=== PATIENT | male | born 1940 | race Caucasian/White ===

== ENCOUNTER → 2023-04-10 11:18 | Outpatient (REF) | payer MEDICARE, BC, SELFPAY | LOC: RAD 11:18 | PROVIDERS: ATTENDING PHYSICIAN Family Medicine | DX: M79.652 Pain in left thigh (principal) | CPT/HCPCS: 73552 ==

== ENCOUNTER → 2023-04-21 06:47 | Outpatient (REF) | payer MEDICARE, BC, SELFPAY | LOC: RAD 06:47 | PROVIDERS: ATTENDING PHYSICIAN Orthopaedic Surgery; FAMILY PHYSICIAN Family Medicine | DX: S72.22XD Displaced subtrochanteric fracture of left femur, subsequent encounter for closed fracture with routine healing (principal) | CPT/HCPCS: 73700 ==

== ENCOUNTER → 2023-04-30 08:56 | Outpatient (REF) | payer MEDICARE, BC, SELFPAY ==
[2023-04-30 09:43] LABS: % Basophils 1.2 % (0-2); % Eosinophils 2.5 % (0-6); % Immature Granulocytes 0.8 % (0-0.5); % Lymphocytes 9.3 % (20.5-51.1); % Monocytes 9.8 % (1.7-9.3); % Neutrophils 76.4 % (42.2-75.2); Absolute Basophils 0.1 10^3/uL (0-0.2); Absolute Eosinophils 0.1 10^3/uL (0-0.7); Absolute Lymphocytes 0.5 10^3/uL (1.2-3.4); Absolute Monocytes 0.5 10^3/uL (0.1-0.6); Absolute Neutrophils 3.7 10^3/uL (1.4-6.5); Hematocrit 35.5 % (39.0-52.0); Hemoglobin 11.7 g/dL (13.0-18.0); Mean Corpuscular Hgb 33.9 pg (27.0-31.0); Mean Corpuscular Volume 102.9 fL (80.0-94.0); Mean Platelet Volume 9.2 fL (7.4-10.4); Nucleated Red Blood Cells % 0 % (-); Platelet Count 162 10^3/uL (130-400); Red Blood Cell Count 3.45 10^6/uL (4.70-6.10); Red Cell Dist. Width 14.4 % (11.5-14.5); White Blood Cell Count 4.8 10^3/uL (4.8-10.8)
[2023-04-30 10:16] LABS: Erythrocyte Sed Rate 21 mm/hour (0-20)
== END ==
LOC: REG 08:56
PROVIDERS: ATTENDING PHYSICIAN Physician Assistant; FAMILY PHYSICIAN Family Medicine
DX: S72.22XK Displaced subtrochanteric fracture of left femur, subsequent encounter for closed fracture with nonunion (principal)
CPT/HCPCS: 36415; 85025; 85652; 86140

== ENCOUNTER → 2023-05-22 07:42 | Outpatient (REF) | payer MEDICARE, BC, SELFPAY ==
[2023-05-22 09:09] LABS: ALT (SGPT) 15 U/L (0-50); AST (SGOT) 27 U/L (17-59); Albumin 4.3 g/dl (3.5-5.0); Alkaline Phosphatase 110 U/L (38-126); Blood Urea Nitrogen 20 mg/dl (9-20); Calcium 9.2 mg/dl (8.4-10.2); Carbon Dioxide 26 mmol/L (22-30); Chloride 105 mmol/L (98-107); Glucose 97 mg/dl (70-99); Magnesium 2.1 mg/dl (1.6-2.3); Potassium 4.6 mmol/L (3.5-5.1); Sodium 136 mmol/L (135-145); Total Bilirubin 0.7 mg/dl (0.2-1.3); Total Protein 7.2 g/dl (6.3-8.2); eGFR > 60.00
[2023-05-22 09:23] LABS: Vitamin D, 25-OH*** 37.7 ng/mL (30-80)
[2023-05-22 09:37] LABS: TSH 3.97 uIU/ml (0.47-4.68)
[2023-05-24 09:51] LABS: Intact PTH 42.7 pg/ml (13.6-85.8)
== END ==
LOC: RAD 07:42
PROVIDERS: ATTENDING PHYSICIAN Orthopaedic Surgery; FAMILY PHYSICIAN Family Medicine
DX: M81.0 Age-related osteoporosis without current pathological fracture (principal); E78.5 Hyperlipidemia, unspecified
CPT/HCPCS: 36415; 77080; 80053; 82306; 82565; 83735; 83970; 84443

== ENCOUNTER → 2023-05-29 07:10 | Outpatient (REF) | payer MEDICARE, BC, SELFPAY ==
[2023-05-29 10:39] LABS: PSA, Total - Diagnostic < 0.06 ng/ml (0.0-4.0)
[2023-05-29 10:42] LABS: Testosterone, Total 8.8 ng/dl (72-623)
== END ==
LOC: REG 07:10
PROVIDERS: ATTENDING PHYSICIAN Radiology Radiation Oncology; FAMILY PHYSICIAN Family Medicine
DX: C61 Malignant neoplasm of prostate (principal)
CPT/HCPCS: 36415; 84153; 84403

== ENCOUNTER 2023-06-02 10:29 | Emergency (ER) | payer SELFPAY ==
[2023-06-02 10:32] VITALS: BP 167/76
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
[2023-06-02] MEDS: VALIUM INJECTION 2 MG IM (11:32)
[2023-06-02] MEDS: LIDOCAINE 4% PATCH 1 PATCH TOPICAL (12:23)
== END 2023-06-02 14:30 | disposition home or self-care (01) ==
LOC: EMR 10:29
PROVIDERS: EMERGENCY PHYSICIAN Emergency Medicine; FAMILY PHYSICIAN Family Medicine
DX: S32.018A Other fracture of first lumbar vertebra, initial encounter for closed fracture (principal); V40.6XXA Car passenger injured in collision with pedestrian or animal in traffic accident, initial encounter; M54.50 Low back pain, unspecified; Z79.01 Long term (current) use of anticoagulants; I10 Essential (primary) hypertension
CPT/HCPCS: 99284; 96372; 70450; 72110

== ENCOUNTER → 2023-06-06 07:00 | Outpatient (REF) | payer MEDICARE, BC, SELFPAY | LOC: RAD 07:00 | PROVIDERS: ATTENDING PHYSICIAN Physician Assistant; FAMILY PHYSICIAN Family Medicine | DX: Z95.0 Presence of cardiac pacemaker (principal); S32.010A Wedge compression fracture of first lumbar vertebra, initial encounter for closed fracture; V49.50XA Passenger injured in collision with unspecified motor vehicles in traffic accident, initial encounter; M54.50 Low back pain, unspecified | CPT/HCPCS: 72131 ==

== ENCOUNTER → 2023-06-24 07:09 | Day surgery (SDC) | payer MEDICARE, BC, SELFPAY ==
[2023-06-24 07:50] VITALS: BP 142/62; BP_SYST 65
[2023-06-24 07:52] LABS: Hematocrit 37.5 % (39.0-52.0); Hemoglobin 12.3 g/dL (13.0-18.0); Mean Corp Hgb Conc. 32.8 g/dL (33.0-37.0); Mean Corpuscular Hgb 33.8 pg (27.0-31.0); Mean Platelet Volume 8.6 fL (7.4-10.4); Platelet Count 209 10^3/uL (130-400); Red Blood Cell Count 3.64 10^6/uL (4.70-6.10); Red Cell Dist. Width 13.7 % (11.5-14.5); White Blood Cell Count 9.4 10^3/uL (4.8-10.8)
[2023-06-24 07:57] LABS: INR 1.28; PT 15.8 Sec (11.4-14.6)
[2023-06-24] MEDS: ANCEF 10 IV (09:04)
[2023-06-24 10:45] VITALS: BP 112/48
--- NOTE | 2023-06-24 10:47 | PTCARENOTE ---
Returned to [facility] at 1030. Pt. to remain flat until 11:30. Pt. denies any pain at this time. See charted assessment.
[2023-06-24 11:00] VITALS: BP 110/50
[2023-06-24 11:15] VITALS: BP 113/56
[2023-06-24 11:31] VITALS: BP 119/56
[2023-06-24 11:45] VITALS: BP 118/55
== END ==
LOC: SDS 07:09
PROVIDERS: ATTENDING PHYSICIAN Radiology Vascular & Interventional Radiology
DX: M80.08XA Age-related osteoporosis with current pathological fracture, vertebra(e), initial encounter for fracture (principal)
CPT/HCPCS: 22511; 22514; 36415; 85027; 85610

== ENCOUNTER → 2023-06-26 10:20 | Outpatient (REF) | payer MEDICARE, BC, SELFPAY ==
[2023-06-26 12:26] LABS: ALT (SGPT) < 10 U/L (0-50); AST (SGOT) 23 U/L (17-59); Albumin 4.1 g/dl (3.5-5.0); Alkaline Phosphatase 135 U/L (38-126); Blood Urea Nitrogen 17 mg/dl (9-20); Calcium 9.5 mg/dl (8.4-10.2); Carbon Dioxide 29 mmol/L (22-30); Chloride 101 mmol/L (98-107); Glucose 96 mg/dl (70-99); Magnesium 2.1 mg/dl (1.6-2.3); Potassium 4.8 mmol/L (3.5-5.1); Sodium 134 mmol/L (135-145); Total Bilirubin 0.7 mg/dl (0.2-1.3); Total Protein 7.1 g/dl (6.3-8.2); eGFR > 60.00
[2023-06-26 12:35] LABS: Vitamin D, 25-OH*** 39.6 ng/mL (30-80)
[2023-06-26 12:49] LABS: TSH 2.19 uIU/ml (0.47-4.68)
== END ==
LOC: REG 10:20
PROVIDERS: ATTENDING PHYSICIAN Orthopaedic Surgery; FAMILY PHYSICIAN Family Medicine
DX: M81.0 Age-related osteoporosis without current pathological fracture (principal); Z79.899 Other long term (current) drug therapy
CPT/HCPCS: 36415; 80053; 82306; 82565; 83735; 84443

== ENCOUNTER → 2023-08-04 06:51 | Outpatient (REF) | payer MEDICARE, BC, SELFPAY ==
[2023-08-04 07:34] LABS: % Basophils 1.2 % (0-2); % Eosinophils 2.7 % (0-6); % Immature Granulocytes 0.8 % (0-0.5); % Lymphocytes 8.8 % (20.5-51.1); % Monocytes 14.6 % (1.7-9.3); % Neutrophils 71.9 % (42.2-75.2); Absolute Basophils 0.1 10^3/uL (0-0.2); Absolute Eosinophils 0.2 10^3/uL (0-0.7); Absolute Immature Granulocytes 0.1 10^3/uL (0-0.05); Absolute Lymphocytes 0.6 10^3/uL (1.2-3.4); Absolute Monocytes 1.1 10^3/uL (0.1-0.6); Absolute Neutrophils 5.3 10^3/uL (1.4-6.5); Hematocrit 34.6 % (39.0-52.0); Hemoglobin 11.4 g/dL (13.0-18.0); Mean Corp Hgb Conc. 32.9 g/dL (33.0-37.0); Mean Corpuscular Hgb 32.8 pg (27.0-31.0); Mean Corpuscular Volume 99.4 fL (80.0-94.0); Mean Platelet Volume 8.7 fL (7.4-10.4); Nucleated Red Blood Cells % 0 % (-); Platelet Count 225 10^3/uL (130-400); Red Blood Cell Count 3.48 10^6/uL (4.70-6.10); Reticulocyte Count 2.9 % (0.4-2.8); White Blood Cell Count 7.3 10^3/uL (4.8-10.8)
== END ==
LOC: REG 06:51
PROVIDERS: ATTENDING PHYSICIAN Family Medicine
DX: D64.9 Anemia, unspecified (principal)
CPT/HCPCS: 36415; 85025; 85045

== ENCOUNTER → 2023-08-18 06:53 | Outpatient (REF) | payer MEDICARE, BC, SELFPAY | LOC: RAD 06:53 | PROVIDERS: ATTENDING PHYSICIAN Orthopaedic Surgery; FAMILY PHYSICIAN Family Medicine | DX: S72.22XK Displaced subtrochanteric fracture of left femur, subsequent encounter for closed fracture with nonunion (principal) | CPT/HCPCS: 73700 ==

== ENCOUNTER → 2023-09-02 07:21 | Outpatient (REF) | payer MEDICARE, BC, SELFPAY ==
[2023-09-02 08:51] LABS: PSA, Total - Diagnostic < 0.06 ng/ml (0.0-4.0)
[2023-09-02 08:53] LABS: Testosterone, Total 15.7 ng/dl (72-623)
== END ==
LOC: REG 07:21
PROVIDERS: ATTENDING PHYSICIAN Radiology Radiation Oncology; FAMILY PHYSICIAN Family Medicine
DX: C61 Malignant neoplasm of prostate (principal)
CPT/HCPCS: 36415; 84153; 84403

== ENCOUNTER → 2023-11-19 06:47 | Outpatient (REF) | payer MEDICARE, BC, SELFPAY ==
[2023-11-19 07:29] LABS: % Basophils 1.1 % (0-2); % Eosinophils 3.5 % (0-6); % Immature Granulocytes 0.6 % (0-0.5); % Monocytes 15.5 % (1.7-9.3); % Neutrophils 67.3 % (42.2-75.2); Absolute Basophils 0.1 10^3/uL (0-0.2); Absolute Eosinophils 0.2 10^3/uL (0-0.7); Absolute Lymphocytes 0.8 10^3/uL (1.2-3.4); Absolute Neutrophils 4.4 10^3/uL (1.4-6.5); Hematocrit 30.2 % (39.0-52.0); Hemoglobin 9.8 g/dL (13.0-18.0); Mean Corp Hgb Conc. 32.5 g/dL (33.0-37.0); Mean Corpuscular Hgb 32.8 pg (27.0-31.0); Mean Platelet Volume 9.1 fL (7.4-10.4); Nucleated Red Blood Cells % 0 % (-); Platelet Count 223 10^3/uL (130-400); Red Blood Cell Count 2.99 10^6/uL (4.70-6.10); Red Cell Dist. Width 15.8 % (11.5-14.5); White Blood Cell Count 6.5 10^3/uL (4.8-10.8)
[2023-11-19 08:11] LABS: ALT (SGPT) 11 U/L (0-50); AST (SGOT) 23 U/L (17-59); Albumin 4.1 g/dl (3.5-5.0); Alkaline Phosphatase 86 U/L (38-126); Blood Urea Nitrogen 18 mg/dl (9-20); Calcium 9.4 mg/dl (8.4-10.2); Carbon Dioxide 24 mmol/L (22-30); Chloride 104 mmol/L (98-107); Glucose 103 mg/dl (70-99); HDL Cholesterol 57 mg/dl; LDL Cholesterol, Calculated 46 mg/dl; Potassium 4.4 mmol/L (3.5-5.1); Sodium 142 mmol/L (135-145); Total Bilirubin 0.5 mg/dl (0.2-1.3); Total Cholesterol 128 mg/dl (50-199); Total Protein 6.6 g/dl (6.3-8.2); Triglyceride 126 mg/dl (10-149); Very Low Density Lipoprotein 25 mg/dl (0-30); eGFR > 60.00
== END ==
LOC: REG 06:47
PROVIDERS: ATTENDING PHYSICIAN Internal Medicine; FAMILY PHYSICIAN Family Medicine
DX: I50.32 Chronic diastolic (congestive) heart failure (principal); I25.10 Atherosclerotic heart disease of native coronary artery without angina pectoris; E78.00 Pure hypercholesterolemia, unspecified
CPT/HCPCS: 36415; 80053; 80061; 85025

== ENCOUNTER → 2023-12-10 06:53 | Outpatient (REF) | payer MEDICARE, BC, SELFPAY ==
[2023-12-10 07:39] LABS: % Eosinophils 3.2 % (0-6); % Immature Granulocytes 0.5 % (0-0.5); % Lymphocytes 12.6 % (20.5-51.1); % Monocytes 16.8 % (1.7-9.3); % Neutrophils 65.9 % (42.2-75.2); Absolute Basophils 0.1 10^3/uL (0-0.2); Absolute Eosinophils 0.2 10^3/uL (0-0.7); Absolute Lymphocytes 0.8 10^3/uL (1.2-3.4); Absolute Neutrophils 3.9 10^3/uL (1.4-6.5); Hematocrit 26.9 % (39.0-52.0); Hemoglobin 8.5 g/dL (13.0-18.0); Mean Corp Hgb Conc. 31.6 g/dL (33.0-37.0); Mean Corpuscular Hgb 31.8 pg (27.0-31.0); Mean Corpuscular Volume 100.7 fL (80.0-94.0); Mean Platelet Volume 8.6 fL (7.4-10.4); Nucleated Red Blood Cells % 0 % (-); Platelet Count 214 10^3/uL (130-400); Red Blood Cell Count 2.67 10^6/uL (4.70-6.10); Red Cell Dist. Width 14.9 % (11.5-14.5)
== END ==
LOC: REG 06:53
PROVIDERS: ATTENDING PHYSICIAN Internal Medicine; FAMILY PHYSICIAN Family Medicine
DX: D64.9 Anemia, unspecified (principal)
CPT/HCPCS: 36415; 85025

== ENCOUNTER 2023-12-12 13:19 | Emergency (ER) | payer MEDICARE, BC, SELFPAY ==
[2023-12-12 13:36] VITALS: BP 148/98
--- NOTE | 2023-12-12 13:36 | ED.GENMED ---
ED Provider Triage
<Lang Mcdaniels PA-C - Last Filed: 12/12/23 13:38>
-
Patient seen by provider in Triage?: Seen in Triage
Attestation: A medical screening examination has been initiated by a qualified medical provider. Based on the assessment performed at this time, it has been determined that an emergent medical condition may exist and the patient has been informed
that further medical evaluation and possible additional diagnostic testing may be needed.
HPI: 83-year-old male presenting to the emergency department for evaluation of GI bleeding and reportedly low hemoglobin. Patient is on Eliquis due to multiple cardiac issues. States that the GI bleeding has been somewhat chronic and is likely
related to prostate cancer and status post radiation. Notes that over the last few days he has become increasingly more short of breath, exertional dyspnea and much more fatigue. Patient was sent to the ER for suspected anemia and requiring blood
transfusion. He does report needing a blood transfusion about 10 years ago.
GENERAL: Alert , in no apparent distress
EYE: No visual abnormalities.
NECK: Trachea midline
ENT: No visible abnormalities.
LUNGS: No acute respiratory distress
NEUROLOGICAL: Alert and oriented
SKIN: Skin intact. No visible changes.
MUSCULOSKELETAL: Moving extremities normally
PSYCH: Normal and appropriate interaction.
This is a medical evaluation conducted in person to initiate diagnostic evaluation and provide initial therapeutics. Please see further documentation by the treating clinician.
History of Present Illness
<Lang Mcdaniels PA-C - Last Filed: 12/12/23 13:38>
General
Chief Complaint: Abnormal Lab Value
Time Seen by Provider: 12/12/23 18:13
<Jim Hines MD - Last Filed: 12/12/23 22:08>
History of Present Illness
History of Present Illness:
Patient is a 83-year-old man with history of A-fib on Eliquis, prostate cancer in remission, GI bleed with ongoing workup presenting to the emergency department with low hemoglobin. Patient states that in August he noticed bright red blood per his
rectum that was painless. He did see GI and had a colonoscopy. It did show active bleeding. At that time GI opted to treat it with an enema and he was post to follow-up with them today. He does state that initially he had significant bright red
blood per his rectum however now it only occurs every few days. He has not had any bleeding today. Unfortunately his appointment was canceled. They called him to reschedule it for early next week. Patient states that he is on Eliquis for his
cardiac issues. He is noted for the past 2 days he has been tired weak and some have been having some dyspnea on exertion. 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 He reviewed his blood work and noticed that his hemoglobin was
dropping and was 8.5 last week. He recommended that he come to the emergency department for evaluation and likely blood transfusion with a goal hemoglobin greater than 8. Patient denies any lightheadedness or dizziness or syncopal events. No
chest pain. No nausea or vomiting.
Past History
<Lang Mcdaniels PA-C - Last Filed: 12/12/23 13:38>
Past History
ED Past Medical History: Arrthythmia (Atrial fibrillation), Asthma and Valvular disease (aortic valve and mitral valve replacement.)
ED Past Surgical History: Cardiac (AVR, MR, pacemaker) and Orthopedic
Social History
Tobacco: Non-smoker
Phy Exam
<Jim Hines MD - Last Filed: 12/12/23 22:08>
Physical Exam
Physical Exam:
GENERAL: in no acute distress
HEENT: normocephalic, extraocular movements intact, pale conjunctiva, moist oral mucosa
NECK: normal inspection
RESPIRATORY: no respiratory distress, clear to auscultation bilaterally
CARDIOVASCULAR: regular rate and rhythm
ABDOMEN/: soft, non-distended, non-tender to palpation, no rebound or guarding
EXTREMITIES: non-tender, no edema/swelling
NEUROLOGIC: awake and alert, moves all extremities
SKIN: warm
Course
<Lang Mcdaniels PA-C - Last Filed: 12/12/23 13:38>
Orders/Labs/Results
Orders:
Orders
12/12/23 13:44
Type+Screen Urgent
Complete Blood Count/With Diff Urgent
Comprehensive Metabolic Panel Urgent
12/12/23 18:16
PTT Urgent
Prothrombin Time Urgent
12/12/23 18:42
* Blood Bank Products Urgent
Blood Bank Products: *Packed RBC Leuko(PRBC's)
Quantity: 1
Transfuse Today: Yes
Reason: Anemia
12/12/23 18:48
Electrocardiogram (*1) Urgent
Reason for Study: Shortness of Breath
EKG- Treatment ONCE
CR Chest - 2 Views Urgent
Comment:
Reason For Exam: ha
12/12/23 19:24
Add On- LAB Stat
Tests Added?: troponin
12/12/23 20:25
Troponin I Urgent
Comment: COLLECT. NO GREEN TOP IN LAB
12/12/23 21:25
EKG- Treatment ONCE
12/12/23 23:00
ECG [Electrocardiogram (*1)] Urgent
Reason for Study: Abnormal EKG
Troponin I Routine
Abnormal Lab Results
12/12/23 12/12/23 12/12/23
13:44 18:16 20:25
RBC 2.55 L 10^6/uL
(4.70-6.10)
Hgb 8.0 L g/dL
(13.0-18.0)
Hct 24.6 L %
(39.0-52.0)
MCV 96.5 H fL
(80.0-94.0)
MCH 31.4 H pg
(27.0-31.0)
MCHC 32.5 L g/dL
(33.0-37.0)
RDW 14.8 H %
(11.5-14.5)
Absolute Lymphs (auto) 0.5 L 10^3/uL
(1.2-3.4)
Absolute Monos (auto) 0.9 H 10^3/uL
(0.1-0.6)
Neutrophils % 79.3 H %
(42.2-75.2)
Lymphocytes % 6.1 L %
(20.5-51.1)
Monocytes % 11.3 H %
(1.7-9.3)
PT 19.1 H Sec
(11.4-14.6)
APTT 38.0 H Sec
(23.4-35.0)
BUN 25 H mg/dl
(9-20)
Creatinine 1.4 H mg/dL
(0.7-1.3)
Glucose 114 H mg/dl
(70-99)
Troponin I 0.035 H* ng/ml
Crossmatch IS Only See Detail
12/12/23 13:44
12/12/23 13:44
Vital Signs
Initial and Last Documented VS:
Initial Vital Signs
Temp Pulse Resp BP Pulse Ox
98.5 F 87 18 148/98 98
12/12/23 13:36 12/12/23 13:36 12/12/23 13:36 12/12/23 13:36 12/12/23 13:36
Last Documented Vital Signs
Temp Pulse Resp BP Pulse Ox
98.4 F 84 20 110/58 96
12/12/23 19:53 12/12/23 21:08 12/12/23 21:08 12/12/23 21:08 12/12/23 21:08
<Jim Hines MD - Last Filed: 12/12/23 22:08>
Orders/Labs/Results
Orders:
Orders
12/12/23 13:44
Type+Screen Urgent
Complete Blood Count/With Diff Urgent
Comprehensive Metabolic Panel Urgent
12/12/23 18:16
PTT Urgent
Prothrombin Time Urgent
12/12/23 18:42
* Blood Bank Products Urgent
Blood Bank Products: *Packed RBC Leuko(PRBC's)
Quantity: 1
Transfuse Today: Yes
Reason: Anemia
12/12/23 18:48
Electrocardiogram (*1) Urgent
Reason for Study: Shortness of Breath
EKG- Treatment ONCE
CR Chest - 2 Views Urgent
Comment:
Reason For Exam: ha
12/12/23 19:24
Add On- LAB Stat
Tests Added?: troponin
12/12/23 20:25
Troponin I Urgent
Comment: COLLECT. NO GREEN TOP IN LAB
12/12/23 21:25
EKG- Treatment ONCE
12/12/23 23:00
ECG [Electrocardiogram (*1)] Urgent
Reason for Study: Abnormal EKG
Troponin I Routine
Abnormal Lab Results
12/12/23 12/12/23 12/12/23
13:44 18:16 20:25
RBC 2.55 L 10^6/uL
(4.70-6.10)
Hgb 8.0 L g/dL
(13.0-18.0)
Hct 24.6 L %
(39.0-52.0)
MCV 96.5 H fL
(80.0-94.0)
MCH 31.4 H pg
(27.0-31.0)
MCHC 32.5 L g/dL
(33.0-37.0)
RDW 14.8 H %
(11.5-14.5)
Absolute Lymphs (auto) 0.5 L 10^3/uL
(1.2-3.4)
Absolute Monos (auto) 0.9 H 10^3/uL
(0.1-0.6)
Neutrophils % 79.3 H %
(42.2-75.2)
Lymphocytes % 6.1 L %
(20.5-51.1)
Monocytes % 11.3 H %
(1.7-9.3)
PT 19.1 H Sec
(11.4-14.6)
APTT 38.0 H Sec
(23.4-35.0)
BUN 25 H mg/dl
(9-20)
Creatinine 1.4 H mg/dL
(0.7-1.3)
Glucose 114 H mg/dl
(70-99)
Troponin I 0.035 H* ng/ml
Crossmatch IS Only See Detail
12/12/23 13:44
12/12/23 13:44
Vital Signs
Initial and Last Documented VS:
Initial Vital Signs
Temp Pulse Resp BP Pulse Ox
98.5 F 87 18 148/98 98
12/12/23 13:36 12/12/23 13:36 12/12/23 13:36 12/12/23 13:36 12/12/23 13:36
Last Documented Vital Signs
Temp Pulse Resp BP Pulse Ox
98.4 F 84 20 110/58 96
12/12/23 19:53 12/12/23 21:08 12/12/23 21:08 12/12/23 21:08 12/12/23 21:08
<Jim Hines MD - Last Filed: 12/12/23 22:08>
MDM/Problems Addressed
Differential Diagnosis Includes:
Patient is a 83-year-old man with multiple cardiac issues on Eliquis for A-fib, ongoing GI bleeding presenting to the emergency department with weakness tiredness and dyspnea on exertion with a downtrending hemoglobin. Vitals here notable for
normal blood pressure and exam is reassuring. He does have ongoing painless bright red blood per his rectum however last had it a few days ago. Concern for anemia likely from this GI bleed. Could also be secondary to metabolic derangement.
History and exam not consistent with pneumonia. Could be arrhythmia though less likely. Blood work obtained prior to evaluation does show hemoglobin of 8. Given the symptoms and his cardiac history will transfuse 1 unit. Will also obtain EKG and
chest x-ray given the other symptoms. I did offer patient admission given the GI bleeding on Eliquis plus his hemoglobin however patient would prefer outpatient treatment at this time.
<Jim Hines MD - Last Filed: 12/12/23 22:08>
*Critical Care Note
Total Time (30-74mins, 75-104mins- exclusive of procedures): Not Applicable
<Jim Hines MD - Last Filed: 12/12/23 22:08>
Update Note
Update Note:
Chest x-ray per my interpretation with no focal opacity. EKG per my interpretation with lateral ST depression. It does appear similar to prior. Given these changes I did add on troponin.
Received a critical call regarding troponin. It is elevated to 0.035. Will obtain delta. Patient denies any chest pain. I did recommend admission at this time given the anemia and elevated troponin however patient would prefer to obtain delta
troponin and if stable to be discharged. He does state that he does have good cardiology follow-up.
Patient signed out to oncoming attending pending delta troponin.
ED Attending Note
<Lang Mcdaniels PA-C - Last Filed: 12/12/23 13:38>
-
Portions of this chart may have been created with voice recognition software.� Occasional wrong word or��sound alike� substitutions may have occurred due to the inherent limitations of voice recognition software.
Discharge Plan
Departure
Prescriptions:
No Action
Incruse Ellipta 62.5 MCG blister with device
62.5 mcg IH R DAILY
furosemide 40 MG tablet
40 mg PO DAILY Qty: 0 0RF
Eliquis 5 MG tablet
5 mg PO BID Qty: 0 0RF
aspirin 81 MG tablet,delayed release (DR/EC)
81 mg PO DAILY Qty: 0 0RF
potassium chloride [Klor-Con M20] 20 MEQ tablet,ER particles/crystals
10 meq PO DAILY Qty: 1 0RF
metoprolol tartrate 50 MG tablet
50 mg PO BID
Metamucil 660 GM powder
1 scoop PO DAILY
dofetilide 500 MCG capsule
500 mcg PO BID
ipratropium-albuterol 0.5 mg-3 mg(2.5 mg base)/3 mL Solution For Nebulization
3 ml INHALATION Q6H PRN (Reason: Wheezing)
guaifenesin 600 mg Tablet Extended Release
1,200 mg PO BID PRN (Reason: cough)
levothyroxine 25 mcg Tablet
25 mcg PO DAILY
bisacodyl [Dulcolax (bisacodyl)] 10 mg Suppository
10 mg CO DAILY PRN (Reason: constipation)
ferrous sulfate 325 mg (65 mg iron) Tablet
325 mg PO DAILY
fluticasone propion-salmeterol [Wixela Inhub] 500-50 mcg/dose Blister With Device
1 inh INHALATION BID
colchicine 0.6 mg Tablet
0.3 mg PO DAILY
fluticasone furoate-vilanterol [Breo Ellipta] 200-25 mcg/dose Blister With Device
1 inh INHALATION DAILY
lidocaine HCl 4 % adhesive patch,medicated
1 patch topical DAILY PRN (Reason: Pain) Qty: 30 0RF
multivitamin Tablet
1 tab PO DAILY
polyethylene glycol 3350 [Miralax] 17 gram Powder In Packet
17 g PO DAILY
alendronate 70 mg Tablet
70 mg PO QWEEK
melatonin 3 mg Tablet
3 mg PO HS PRN (Reason: insomnia)
magnesium hydroxide [Milk of Magnesia] 400 mg/5 mL Suspension
15 ml PO TID
oxycodone-acetaminophen 10-325 mg Tablet
1 tab PO Q6H PRN (Reason: pain)
omeprazole 20 mg Capsule,Delayed Release(Dr/Ec)
20 mg PO DAILY
fluticasone propion-salmeterol 100-50 mcg/dose Blister With Device
1 ea INHALATION DAILY
albuterol sulfate 90 mcg/actuation Hfa Aerosol Inhaler
1 puff INHALATION QID PRN (Reason: wheezing)
guaifenesin [Mucinex] 600 mg Tablet Extended Release 12hr
600 mg PO Q12H PRN (Reason: allergies)
atorvastatin 80 MG tablet
40 mg PO QPM
Referrals:
You Thao DO [Family Provider] -
Interventions
Interventions:
*Risk Screen - Suicide Last Done: 12/12/23 13:36
*General Assessment Last Done: 12/12/23 13:36
*Neglect/Abuse Screening Last Done: 12/12/23 13:36
ED- Fall Risk Assessment Last Done: 12/12/23 17:49
*ED COVID-19 Vaccine History Last Done: 12/12/23 13:36
SU-Wguqxw-Socmtxkoco Assessment Last Done: 12/12/23 17:49
ED- Cardiac Assessment Last Done: 12/12/23 17:49
ED- Pulmonary Assessment Last Done: 12/12/23 17:49
Discharge Date and Time
Print Language: TURKISH
[2023-12-12 13:53] LABS: % Basophils 0.5 % (0-2); % Eosinophils 2.5 % (0-6); % Immature Granulocytes 0.3 % (0-0.5); % Lymphocytes 6.1 % (20.5-51.1); % Monocytes 11.3 % (1.7-9.3); % Neutrophils 79.3 % (42.2-75.2); Absolute Eosinophils 0.2 10^3/uL (0-0.7); Absolute Lymphocytes 0.5 10^3/uL (1.2-3.4); Absolute Monocytes 0.9 10^3/uL (0.1-0.6); Absolute Neutrophils 5.9 10^3/uL (1.4-6.5); Hematocrit 24.6 % (39.0-52.0); Mean Corp Hgb Conc. 32.5 g/dL (33.0-37.0); Mean Corpuscular Hgb 31.4 pg (27.0-31.0); Mean Corpuscular Volume 96.5 fL (80.0-94.0); Mean Platelet Volume 8.8 fL (7.4-10.4); Nucleated Red Blood Cells % 0 % (-); Platelet Count 190 10^3/uL (130-400); Red Blood Cell Count 2.55 10^6/uL (4.70-6.10); Red Cell Dist. Width 14.8 % (11.5-14.5); White Blood Cell Count 7.5 10^3/uL (4.8-10.8)
[2023-12-12 14:54] LABS: ALT (SGPT) 10 U/L (0-50); AST (SGOT) 23 U/L (17-59); Albumin 3.9 g/dl (3.5-5.0); Alkaline Phosphatase 88 U/L (38-126); Blood Urea Nitrogen 25 mg/dl (9-20); Calcium 9.1 mg/dl (8.4-10.2); Carbon Dioxide 27 mmol/L (22-30); Chloride 103 mmol/L (98-107); Glucose 114 mg/dl (70-99); Potassium 4.4 mmol/L (3.5-5.1); Sodium 141 mmol/L (135-145); Total Bilirubin 0.7 mg/dl (0.2-1.3); Total Protein 6.5 g/dl (6.3-8.2); eGFR 49.56
[2023-12-12 17:54] VITALS: BP 126/58
[2023-12-12 18:37] LABS: INR 1.62; PT 19.1 Sec (11.4-14.6)
[2023-12-12 19:36] VITALS: BP 114/52
[2023-12-12 19:53] VITALS: BP 115/57; BP 116/75
[2023-12-12 21:08] VITALS: BP 110/58
[2023-12-12 21:11] LABS: Troponin I 0.035 ng/ml
[2023-12-12 23:00] LABS: Troponin I 0.039 ng/ml
== END 2023-12-12 23:51 | disposition home or self-care (01) ==
LOC: EMR 13:19
PROVIDERS: Emergency Medicine; Physician Assistant Medical; EMERGENCY PHYSICIAN Student in an Organized Health Care Education/Training Program; FAMILY PHYSICIAN Family Medicine
DX: D64.9 Anemia, unspecified (principal); I48.91 Unspecified atrial fibrillation; J45.909 Unspecified asthma, uncomplicated; I38 Endocarditis, valve unspecified; C61 Malignant neoplasm of prostate; Z79.01 Long term (current) use of anticoagulants; Z92.3 Personal history of irradiation; Z95.0 Presence of cardiac pacemaker
CPT/HCPCS: 99283; 36430; 71046; 80053; 84484; 85025; 85610; 85730; 86850; 86900; 86901; 86920; 93005; P9016

== ENCOUNTER → 2023-12-17 06:17 | Day surgery (SDC) | payer MEDICARE, BC, SELFPAY | LOC: GI 06:17 | PROVIDERS: ATTENDING PHYSICIAN Surgery | DX: K62.5 Hemorrhage of anus and rectum (principal); K57.30 Diverticulosis of large intestine without perforation or abscess without bleeding; K62.7 Radiation proctitis; Y84.2 Radiological procedure and radiotherapy as the cause of abnormal reaction of the patient, or of later complication, without mention of misadventure at the time of the procedure | CPT/HCPCS: 45334; 45331; 88305 ==

== ENCOUNTER 2024-01-01 14:14 | Outpatient (RCR) | payer MEDICARE, BC, SELFPAY ==
[2023-12-29 11:40] VITALS: BP 130/38
[2023-12-29] MEDS: VENOFER 110 MG IV (11:46)
[2023-12-29 12:50] VITALS: BP 110/44
[2024-01-01 14:35] LABS: % Basophils 0.5 % (0-2); % Eosinophils 2.1 % (0-6); % Immature Granulocytes 0.2 % (0-0.5); % Lymphocytes 4.9 % (20.5-51.1); % Monocytes 10.6 % (1.7-9.3); % Neutrophils 81.7 % (42.2-75.2); Absolute Eosinophils 0.2 10^3/uL (0-0.7); Absolute Lymphocytes 0.4 10^3/uL (1.2-3.4); Absolute Monocytes 0.9 10^3/uL (0.1-0.6); Absolute Neutrophils 6.7 10^3/uL (1.4-6.5); Hematocrit 27.2 % (39.0-52.0); Hemoglobin 8.2 g/dL (13.0-18.0); Mean Corp Hgb Conc. 30.1 g/dL (33.0-37.0); Mean Corpuscular Hgb 29.7 pg (27.0-31.0); Mean Corpuscular Volume 98.6 fL (80.0-94.0); Mean Platelet Volume 8.4 fL (7.4-10.4); Platelet Count 206 10^3/uL (130-400); Red Blood Cell Count 2.76 10^6/uL (4.70-6.10); Red Cell Dist. Width 16.1 % (11.5-14.5); White Blood Cell Count 8.2 10^3/uL (4.8-10.8)
[2024-01-01] MEDS: VENOFER 110 MG IV (14:48)
[2024-01-01 15:00] VITALS: BP 111/43
[2024-01-01 15:54] VITALS: BP 97/44
== END 2024-01-01 23:59 | disposition home or self-care (01) ==
LOC: OID 14:14
PROVIDERS: ATTENDING PHYSICIAN Family Medicine
DX: D50.0 Iron deficiency anemia secondary to blood loss (chronic) (principal); K62.5 Hemorrhage of anus and rectum; K62.7 Radiation proctitis; I48.19 Other persistent atrial fibrillation; R53.1 Weakness; Z79.01 Long term (current) use of anticoagulants
CPT/HCPCS: 85025; 86850; 86900; 86901; 86920; 96365; J1756

== ENCOUNTER 2024-01-09 09:43 | Outpatient (RCR) | payer MEDICARE, BC, SELFPAY ==
[2024-01-02 13:28] VITALS: BP 109/49
[2024-01-02 13:49] VITALS: BP 125/57
[2024-01-02 16:11] VITALS: BP 114/54
[2024-01-05] MEDS: VENOFER 110 MG IV (09:43)
[2024-01-05 09:47] VITALS: BP 115/45
[2024-01-05 10:07] LABS: % Basophils 0.8 % (0-2); % Immature Granulocytes 0.4 % (0-0.5); % Lymphocytes 4.6 % (20.5-51.1); % Monocytes 10.3 % (1.7-9.3); % Neutrophils 81.9 % (42.2-75.2); Absolute Basophils 0.1 10^3/uL (0-0.2); Absolute Eosinophils 0.2 10^3/uL (0-0.7); Absolute Lymphocytes 0.3 10^3/uL (1.2-3.4); Absolute Monocytes 0.8 10^3/uL (0.1-0.6); Hematocrit 29.9 % (39.0-52.0); Hemoglobin 9.4 g/dL (13.0-18.0); Mean Corp Hgb Conc. 31.4 g/dL (33.0-37.0); Mean Corpuscular Hgb 29.7 pg (27.0-31.0); Mean Corpuscular Volume 94.3 fL (80.0-94.0); Mean Platelet Volume 8.6 fL (7.4-10.4); Nucleated Red Blood Cells % 0 % (-); Platelet Count 179 10^3/uL (130-400); Red Blood Cell Count 3.17 10^6/uL (4.70-6.10); White Blood Cell Count 7.4 10^3/uL (4.8-10.8)
[2024-01-05 13:05] VITALS: BP 111/45
[2024-01-07 10:54] VITALS: BP 91/57
[2024-01-07] MEDS: VENOFER 110 MG IV (11:02)
[2024-01-07 12:07] VITALS: BP 99/54
[2024-01-09 10:01] VITALS: BP 123/60
[2024-01-09] MEDS: VENOFER 110 MG IV (10:21)
[2024-01-09 10:58] LABS: Hematocrit 29.4 % (39.0-52.0)
[2024-01-09 12:13] VITALS: BP 123/60
[2024-01-09 12:29] VITALS: BP 119/57
[2024-01-09 14:21] VITALS: BP 117/57
== END 2024-01-31 23:59 | disposition home or self-care (01) ==
LOC: OID 09:43
PROVIDERS: ATTENDING PHYSICIAN Family Medicine
DX: D50.0 Iron deficiency anemia secondary to blood loss (chronic) (principal); C61 Malignant neoplasm of prostate; K62.5 Hemorrhage of anus and rectum; K62.7 Radiation proctitis; I48.19 Other persistent atrial fibrillation; I25.10 Atherosclerotic heart disease of native coronary artery without angina pectoris; I48.0 Paroxysmal atrial fibrillation; Z79.01 Long term (current) use of anticoagulants; D64.9 Anemia, unspecified; R79.89 Other specified abnormal findings of blood chemistry; Z95.0 Presence of cardiac pacemaker; Z95.2 Presence of prosthetic heart valve
CPT/HCPCS: 36430; 85014; 85018; 85025; 86850; 86900; 86901; 86920; 96365; J1756; P9016

== ENCOUNTER → 2024-01-28 06:55 | Outpatient (REF) | payer MEDICARE, BC, SELFPAY ==
[2024-01-28 07:31] LABS: % Basophils 1.3 % (0-2); % Eosinophils 2.3 % (0-6); % Immature Granulocytes 0.7 % (0-0.5); % Lymphocytes 7.2 % (20.5-51.1); % Monocytes 12.8 % (1.7-9.3); % Neutrophils 75.7 % (42.2-75.2); Absolute Basophils 0.1 10^3/uL (0-0.2); Absolute Eosinophils 0.1 10^3/uL (0-0.7); Absolute Lymphocytes 0.4 10^3/uL (1.2-3.4); Absolute Monocytes 0.8 10^3/uL (0.1-0.6); Absolute Neutrophils 4.6 10^3/uL (1.4-6.5); Hematocrit 32.4 % (39.0-52.0); Hemoglobin 10.1 g/dL (13.0-18.0); Mean Corp Hgb Conc. 31.2 g/dL (33.0-37.0); Mean Corpuscular Hgb 31.1 pg (27.0-31.0); Mean Corpuscular Volume 99.7 fL (80.0-94.0); Mean Platelet Volume 8.8 fL (7.4-10.4); Nucleated Red Blood Cells % 0 % (-); Platelet Count 204 10^3/uL (130-400); Red Blood Cell Count 3.25 10^6/uL (4.70-6.10); Red Cell Dist. Width 18.3 % (11.5-14.5); White Blood Cell Count 6.1 10^3/uL (4.8-10.8)
== END ==
LOC: REG 06:55
PROVIDERS: ATTENDING PHYSICIAN Family Medicine; REFERRING PHYSICIAN Internal Medicine
DX: D64.9 Anemia, unspecified (principal)
CPT/HCPCS: 36415; 85025

== ENCOUNTER 2024-03-05 08:21 | Outpatient (RCR) | payer MEDICARE, BC, SELFPAY ==
[2024-03-05] MEDS: TYLENOL 650 MG PO (08:58)
[2024-03-05 09:02] VITALS: BP 91/40
[2024-03-05 09:20] VITALS: BP 102/43
[2024-03-05] MEDS: LASIX 40 MG PO (11:34)
[2024-03-05 11:37] VITALS: BP 115/57
[2024-03-05 11:55] VITALS: BP 114/43
[2024-03-05 14:26] VITALS: BP 103/51
== END 2024-04-02 23:59 | disposition home or self-care (01) ==
LOC: OID 08:21
PROVIDERS: ATTENDING PHYSICIAN Family Medicine
DX: D50.0 Iron deficiency anemia secondary to blood loss (chronic) (principal); C61 Malignant neoplasm of prostate; K62.5 Hemorrhage of anus and rectum; K62.7 Radiation proctitis; I48.19 Other persistent atrial fibrillation; Z79.01 Long term (current) use of anticoagulants
CPT/HCPCS: 36415; 36430; 86850; 86900; 86901; 86920; P9016

== ENCOUNTER 2024-03-17 19:50 | Inpatient (IN) | payer MEDICARE, BC, SELFPAY ==
[2024-03-17] VITALS (20 sets, daily range): BP systolic 86–115; BP diastolic 19–94; BMI 22.9
--- NOTE | 2024-03-17 16:42 | ED.GENMED ---
History of Present Illness
General
Chief Complaint: Rectal Bleeding
Source: patient and records
Time Seen by Provider: 03/17/24 16:31
History of Present Illness
History of Present Illness:
83-year-old male presents to the emergency room complaining of weakness, shortness of breath with minimal exertion, feeling dizzy and having difficulty standing and walking. 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 In
fact he is scheduled for procedure tomorrow morning to address this. His last episode of rectal bleeding was 2 days ago at which point he was passing clots. He has received several blood transfusions most recently 2 units last week. Patient does
typically take oral anticoagulants but has stopped it in preparation for this procedure tomorrow. He denies chest pain. He denies abdominal pain. No fever.
Past History
Past History
ED Past Medical History: Arrthythmia (Atrial fibrillation), Asthma and Valvular disease (aortic valve and mitral valve replacement.)
ED Past Surgical History: Cardiac (AVR, MR, pacemaker) and Orthopedic
Social History
Tobacco: Non-smoker
Phy Exam
Physical Exam
Physical Exam:
General: Awake, Alert, Oriented X3. Appears chronically ill, pale complexion
Vitals: unremarkable
Head: Atraumatic
Eyes: Pupils equal, EOMI
Throat: Airway intact, no exudates, dry mucosa
Neck: Trachea midline
Lungs: Clear and equal b/l
Heart: Regular rate, no murmurs
Abd: Soft, Nontender, No pulsatile mass
Rectal: Deferred given known history of proctitis of bleeding
Neuro: Nonfocal
Skin: Warm, dry, no rash
Extremities: pulses equal b/l, no edema
Course
Orders/Labs/Results
Orders:
Orders
03/17/24 16:24
Electrocardiogram (*1) Urgent
Reason for Study: Other
Other Reason for Exam: rectal bleeding
03/17/24 16:25
EKG- Treatment ONCE
03/17/24 16:30
Type+Screen Urgent
Complete Blood Count/With Diff Urgent
Comprehensive Metabolic Panel Urgent
PTT Urgent
03/17/24 17:04
Blood Bank Products [* Blood Bank Products] Urgent
Blood Bank Products: *Packed RBC Leuko(PRBC's)
Quantity: 2
Transfuse Today: Yes
Reason: Bleeding
03/17/24 17:34
Pantoprazole [Protonix IV] 80 mg IV NOW STA
03/17/24 18:39
CARDIOLOGY CONSULT Routine
Consulting Provider: Anne Aguilera
Was physician already notified: Yes
Reason for consult: rectal bleeding /radiation procitis on eliquis/asa afib
03/17/24 18:40
SURGICAL CONSULT Routine
Consulting Provider: Maxime Trinidad
Was physician already notified: Yes
Reason for consult: rectal bleeding /radiation procitis on eliquis/asa afib/swapnil
03/17/24 18:42
Dextrose 50%-Water [Dextrose 50% Syringe] 12.5 grams IV [id number] PRN
Dextrose 50%-Water [Dextrose 50% Syringe] 25 grams IV NOW STA
Insulin Human Regular [Novolin R] 5 units IV NOW STA
Sodium Zirconium Cyclosilicate [Lokelma] 10 gram PO NOW STA
03/17/24 18:43
Bedside Glucose PRE IV Insulin- HyperK+ NOW
03/17/24 18:44
Admit/Transfer Patient As Directed
Co-Sign Provider:
Level of Care: Inpatient admission
Assign to:: IMU- Intermediate Care
Physician / Group: quentin bauer
Diagnosis: rectal bleeding, blood loss volume shocki, swapnil/blood loss, hyperk
Reason for Hospitalization: rectal bleeding, blood loss volume shocki, swapnil/blood loss, hyperk
Expected length of stay greater than two midnights?: Yes
ELOS- Estimated Length of Stay in days: 6
I certify the patient meets the requirements for IP care: Yes
Code Status As Directed
Resuscitation Status: Full Code
03/17/24 18:47
PRN Pain Medication Management As Directed
May give lesser potent ordered pain med per pt: Yes
preference::
Protocol:: Medication orders for pain may be administered in a
manner that supports deferring to patient preference
when the pt is:
- Requesting an ordered lesser potent pain medication.
Least to most potent pain medications are defined
as: acetaminophen < NSAID < tramadol < opioids
(morphine, oxycodone, hydromorphone).
- Requesting a lesser dose of the same medication IF
ORDERED.
- Requesting a less intrusive route of administration
if both routes are prescribed by the provider (PO <
IV).
03/17/24 18:48
EKG [Electrocardiogram (*1)] Urgent
Reason for Study: QTc Monitoring
Other Reason for Exam: hyperk
03/17/24 18:49
Blood Bank Products [* Blood Bank Products] Urgent
Blood Bank Products: *Packed RBC Leuko(PRBC's)
Quantity: 1
Transfuse Today: Yes
Reason: Bleeding
Comment: this is additional unit to make 3 total units today
03/17/24 20:13
Bedside Glucose POST IV Insulin- HyperK+ Q1HX2,Q2HX2
03/17/24 20:56
Albuterol [ProAIR HFA INHALER] 1 puff INH R Q6HPRN PRN
Dofetilide [Tikosyn] 500 mcg PO BID
03/17/24 20:56
Activity As Directed
Activity Level: As Tolerated
Intake/ Output As Directed
Frequency: Per unit guidelines
Pneumatic Compression Sleeves As Directed
Type: Knee high
Vital Signs As Directed
Frequency: Per unit guidelines
Weight As Directed
Frequency: Daily
Pt Eval And Treat Routine
Activity Level: With Assistance
DX Deep Vein Thrombosis Video Routine
03/17/24 21:13
Potassium Urgent
Comment: draw 2 hours after regular insulin IV administration
03/18/24 Breakfast
NPO
Allow oral meds: Yes
Allow clear liquids: No
NPO with Ice Chips: No
Complete Blood Count/With Diff IN AM
Comprehensive Metabolic Panel IN AM
03/18/24 08:00
Budesonide/Formoterol 160/4.5 [Symbicort 160/4.5 Mcg Inhaler] 2 puff INH R BID
03/19/24 06:00
Complete Blood Count/With Diff IN AM
Comprehensive Metabolic Panel IN AM
03/20/24 06:00
Complete Blood Count/With Diff IN AM
Comprehensive Metabolic Panel IN AM
03/21/24 06:00
Complete Blood Count/With Diff IN AM
Comprehensive Metabolic Panel IN AM
Abnormal Lab Results
03/17/24 03/17/24
16:30 19:06
RBC 1.99 L 10^6/uL
(4.70-6.10)
Hgb 5.5 L* g/dL
(13.0-18.0)
Hct 18.2 L* %
(39.0-52.0)
MCHC 30.2 L g/dL
(33.0-37.0)
RDW 16.7 H %
(11.5-14.5)
Absolute Neuts (auto) 6.6 H 10^3/uL
(1.4-6.5)
Absolute Lymphs (auto) 0.2 L 10^3/uL
(1.2-3.4)
Absolute Monos (auto) 1.3 H 10^3/uL
(0.1-0.6)
Neutrophils % 80.5 H %
(42.2-75.2)
Lymphocytes % 2.9 L %
(20.5-51.1)
Monocytes % 16.1 H %
(1.7-9.3)
APTT 41.5 H Sec
(23.4-35.0)
Potassium 6.0 H mmol/L
(3.5-5.1)
Carbon Dioxide 15 L mmol/L
(22-30)
BUN 68 H mg/dl
(9-20)
Creatinine 2.6 H mg/dL
(0.7-1.3)
Total Protein 6.1 L g/dl
(6.3-8.2)
POC Glucose 44 L* mg/dl
(70-99)
Crossmatch IS Only See Detail
03/17/24 16:30
03/17/24 16:30
Vital Signs
Initial and Last Documented VS:
Initial Vital Signs
Temp Resp
97.5 F 20
03/17/24 16:21 03/17/24 16:21
Last Documented Vital Signs
Temp Pulse Resp BP Pulse Ox
97.9 F 60 26 101/53 94
03/17/24 21:02 03/17/24 20:00 03/17/24 20:00 03/17/24 20:00 03/17/24 19:32
MDM/Problems Addressed
Differential Diagnosis Includes:
Chronic lower GI bleed, upper GI bleed, anemia of chronic disease, dehydration,
MDM/Problems Addressed:
Patient presents with weakness, dizziness and known lower GI bleeding. Hemoglobin today is found to be quite low at 5.5. His blood pressures have been mildly low the treatment for for which is blood. Patient's renal function noted to have
increased from last hospitalization. I suspect this is mainly due to blood loss. Patient require hospitalization for transfusion, careful monitoring and potentially for surgical procedure as scheduled by Dr. Trinidad.
Chronic conditions affecting care: Cancer (Prostate)
*Pulse Oximetry
Patient hypoxic: no
*EKG
Interpreted by ED Provider?: Yes
Interpretation: abnormal
Heart Rate: 60
Rate: normal
Rhythm: other (Atrial paced)
Ischemia: no ischemia
*Cam Milling Machine Operator Interpretation
Rate: normal
Interpretation: abnormal
Rhythm: other (Atrial paced)
*Critical Care Note
Total Time (30-74mins, 75-104mins- exclusive of procedures): 35 min
comment:
Critical care statement: A total of 35 minutes of critical care time was provided for this patient. This includes management of unstable vital signs, evaluation of the patient at bedside, reviewing the patient's pertinent medical records, discussion
with consultants, review of old EKGs and review of pertinent medical records. This time with separate from time utilized to perform the aforementioned documented procedures
ED Attending Note
-
Portions of this chart may have been created with voice recognition software.� Occasional wrong word or��sound alike� substitutions may have occurred due to the inherent limitations of voice recognition software.
Discharge Plan
Departure
Patient Disposition: Admit
Date of Disposition: 03/17/24
Time of Disposition: 17:34
Admit to: IMU
Presentation/result/management discussed w/ accepting MD/DO: Hospitalist
Condition: Fair
Discharge Problem:
Rectal bleeding, Radiation proctitis, Symptomatic anemia
Interventions
Interventions:
*General Assessment Last Done: 03/17/24 16:21
ED- Fall Risk Assessment Last Done: 03/17/24 16:28
*ED COVID-19 Vaccine History Last Done: 03/17/24 21:04
*Nursing Disposition Last Done: 03/17/24 20:57
AP-Olvubd-Xeyzllusyi Assessment Last Done: 03/17/24 16:28
ED- Cardiac Assessment Last Done: 03/17/24 16:28
ED- Pulmonary Assessment Last Done: 03/17/24 16:28
Discharge Date and Time
Discharge Date/Time: 03/17/24 20:58
[2024-03-17 16:57] LABS: APTT 41.5 Sec (23.4-35.0)
[2024-03-17 17:02] LABS: % Basophils 0.1 % (0-2); % Immature Granulocytes 0.4 % (0-0.5); % Lymphocytes 2.9 % (20.5-51.1); % Monocytes 16.1 % (1.7-9.3); % Neutrophils 80.5 % (42.2-75.2); Absolute Lymphocytes 0.2 10^3/uL (1.2-3.4); Absolute Monocytes 1.3 10^3/uL (0.1-0.6); Absolute Neutrophils 6.6 10^3/uL (1.4-6.5); Hematocrit 18.2 % (39.0-52.0); Hemoglobin 5.5 g/dL (13.0-18.0); Mean Corp Hgb Conc. 30.2 g/dL (33.0-37.0); Mean Corpuscular Hgb 27.6 pg (27.0-31.0); Mean Corpuscular Volume 91.5 fL (80.0-94.0); Mean Platelet Volume 9.7 fL (7.4-10.4); Nucleated Red Blood Cells % 0.6 % (-); Platelet Count 236 10^3/uL (130-400); Red Blood Cell Count 1.99 10^6/uL (4.70-6.10); Red Cell Dist. Width 16.7 % (11.5-14.5); White Blood Cell Count 8.2 10^3/uL (4.8-10.8)
[2024-03-17 17:04] LABS: ALT (SGPT) 18 U/L (0-50); AST (SGOT) 43 U/L (17-59); Albumin 3.6 g/dl (3.5-5.0); Alkaline Phosphatase 56 U/L (38-126); Blood Urea Nitrogen 68 mg/dl (9-20); Calcium 8.5 mg/dl (8.4-10.2); Carbon Dioxide 15 mmol/L (22-30); Chloride 104 mmol/L (98-107); Glucose 91 mg/dl (70-99); Sodium 138 mmol/L (135-145); Total Bilirubin 0.7 mg/dl (0.2-1.3); Total Protein 6.1 g/dl (6.3-8.2); eGFR 23.58
--- NOTE | 2024-03-17 17:47 | HPS.HSE ---
Addendum entered and electronically signed by JORGE Panda 03/17/24 19:04:
Hold aspirin per [facility] cardiology Dr. benavides
Original Note:
Family Physician
<JORGE Panda - Last Filed: 03/17/24 18:44>
-
Family Physician: You Thao, DO
Chief Complaint
<JORGE Panda - Last Filed: 03/17/24 18:44>
-
Rectal bleeding x 2 days, multiple blood transfusions in the past 9 days
History of Present Illness
83-year-old male complaining of weakness, shortness of breath with SCHERER, dizziness increased with standing and/or walking, pain in bilateral knees and feet. He is scheduled for a Formalin application to his recurrent rectal bleeding site from
radiation proctitis tomorrow ,however his last episode of rectal bleeding was 2 days ago at which point he was passing clots. He has received several blood transfusions most recently 3 units in the past 9 days he also then received he reports he
has been seeing a administration internship PCP Dr. You Buckley has been watching his blood count and sending him to an outpatient infusion center. He states his hemoglobin was 8.5 on 03/08/2024 9 days ago where he received 1 unit of blood, however he states it
dropped again to unknown value 5 days ago on 03/12/2024 and he received 2 units of blood. At some point he received 5 IV iron transfusions recently. He has had no communication with his clip wrapper about his Eliquis or aspirin. His administration internship
physician had him stop Eliquis on 03/15/2023 2 days ago but continue his aspirin 81 mg daily. At some point his notified his colorectal surgeon Dr. Trinidad about the recent rectal bleeding 2 days ago, blood transfusions and his current
hemoglobin is 5.5 he was referred to the ER immediately for transfusion of 2 units of PRBC and a formalin application to his recurrent rectal bleeding site from radiation proctitis tomorrow 03/18/2024. He denies headache, chest pain, palpitations,
fever, chills, abdominal pain, nausea, vomiting, urinary symptoms. He has past medical history of A-fib/ablation March 2020, permanent pacemaker asthma, AVR, MVR replacement, HTN, left renal artery stenosis hypothyroidism, gastritis/duodenitis
December 2004, gastric perforation secondary to aspirin and Plavix per patient 2004 CAD cardiac stent December 2004, hepatitis A, pericardial effusion with pericardiocentesis 08/06/2019 status post AVR/MVR/maze 08/06/2019, prostate cancer August 2022 [facility],
femur fracture September 30, 2022
Medical History
<JORGE Panda - Last Filed: 03/17/24 18:44>
Past Medical History
Past Medical History: Reports Other
Additional Past Medical History:
Radiation proctitis
Prostate CA August 2022 [facility]
A-fib/ablation March 2020
Permanent pacemaker
Asthma
HTN
Left renal artery stenosis
AVR, MVR replacement replacement
Pericardial effusion with pericardiocentesis 08/06/2019 status post AVR/MVR/maze 08/06/2019
Hhypothyroidism
Gastritis/duodenitis December 2004
, gastric perforation secondary to aspirin and Plavix per patient
CAD cardiac stent December 2004
hepatitis A Hx
femur fracture September 30, 2022
Past Surgical History: Reports Other
Additional Past Surgical History:
AVR, MVR replacement replacement
Pericardial effusion with pericardiocentesis 08/06/2019 status post AVR/MVR/maze 08/06/2019
Pacemaker
A-fib ablation March 2020
Social History
Tobacco: Former Smoker (Quit age 25)
Alcohol: Binge drinker (3 ounces daily vodka with tonic Friday and Friday)
Drug: None
Personal:
Living: With Family ( Rosita)
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
Family History
Family History: Other (Father prostate cancer age 93, mother age 89 pulmonary fibrosis, 1 sister renal cancer, 1 brother, 1 sister healthy, 1 son, 1 daughter healthy)
Allergies / Home Medications
Allergies reflects when Allergies were last updated in [facility] [employer] [facility].
Home Medications with original date entered in [facility] [employer] [facility]
Allergy/Medication List:
Allergies
Allergy/AdvReac Type Severity Reaction Status Date / Time
No Known Allergies Allergy Verified 03/17/24 16:21
Home Medications
umeclidinium 62.5 mcg/actuation blister powder for inhalation (Incruse Ellipta) 62.5 mcg IH R DAILY Lung/breathing issues 04/28/19
furosemide 40 mg tablet 40 mg PO DAILY Fluid retention/Swelling ##0 08/10/19
aspirin 81 mg tablet,delayed release 81 mg PO DAILY Blood clot prevention/tx ##0 02/02/20
dofetilide 500 mcg capsule 500 mcg PO BID 03/23/20
metoprolol tartrate 50 mg tablet 50 mg PO Q8H 03/23/20
psyllium husk 3.4 gram/5.4 gram oral powder (Metamucil) 1 scoop PO DAILY 03/23/20
fluticasone furoate 200 mcg-vilanterol 25 mcg/dose inhalation powder (Breo Ellipta) 1 inh inhalation R DAILY 11/25/22
levothyroxine 25 mcg tablet 25 mcg PO DAILY 11/25/22
albuterol sulfate 90 mcg/actuation aerosol inhaler 1 puff inhalation R Q6HPRN PRN wheezing 06/23/23
alendronate 70 mg tablet 70 mg PO MO 06/23/23
atorvastatin 80 mg tablet 40 mg PO QPM 06/23/23
guaifenesin 600 mg tablet, extended release 12 hr (Mucinex) 600 mg PO [id number] PRN allergies 06/23/23
acetaminophen 500 mg tablet (Tylenol Extra Strength) 1,000 mg PO Q6HPRN PRN mild pain 03/17/24
potassium chloride 10 mEq tablet,extended release(part/cryst) 10 meq PO DAILY 03/17/24
Review of Systems
<JORGE Padna - Last Filed: 03/17/24 18:44>
-
History Source: Patient and Family ( Rosita at bedside)
A 12 point ROS was completed and negative except as noted: Yes
Constitutional: Reports Fatigue and Other (Pale); Denies Fever or Chills
EENT: Denies Sore Throat or Runny Nose
Respiratory: Denies Cough or Trouble Breathing
Cardiac: Denies Chest Pain, Palpitations or Syncope
Abdomen/GI: Reports Bloody Stools; Denies Abdominal Pain, Nausea, Vomiting, Diarrhea or Constipated
: Denies Dysuria, Frequency, Flank Pain, Incontinence, Difficulty Voiding or Urgency
Musculoskeletal: Denies Joint Pain or Edema
Skin: Denies Itching or Rash
Neurological: Reports Dizzy and Weakness (Generalized); Denies Headache
Endocrine: Reports No Symptoms
Hematologic/Lymphatic: Reports No Symptoms
Psych: Reports Calm
Physical Exam
<JORGE Panda - Last Filed: 03/17/24 18:44>
Vital Signs
Vital Signs
Temp Pulse Resp BP Pulse Ox
97.5 F 60 25 86/39 97
03/17/24 16:21 03/17/24 16:54 03/17/24 16:54 03/17/24 16:54 03/17/24 16:31
Physical Exam
General: Comfortable, Conversant and Other (Generalized fatigue); No Pain, Fever or Chills
HEENT: NormoCephalic, Moist mucous membranes, PERRLA, No Ptosis and Other (Pale conjunctiva)
Respiratory: Clear; No Wheezes, Rales or Rhonchi
Cardiac: S1/S2 and Regular Rhythm (Paced rhythm); No Murmur, Rub, Gallop or Peripheral Edema
Breast: Deferred by me
GI: Soft, Non Tender, Non Distended, Normal Bowel Sounds and No Hepatosplenomegaly
Rectal: Deferred by Provider
Genito-urinary: Deferred by me
Musculoskeletal: No Clubbing, No Cyanosis and No Edema
Skin: Warm, Dry and Other (No bruising noted); No Rash or Jaundice
Neuro: AO x 3, No Motor Deficits, Cranial Nerves Intact, No Sensory Deficits and Other (Fatigue); No Slurred Speech, Facial Droop, Tremors or Sedated
Psych: Calm
Laboratory Results
<JORGE Panda - Last Filed: 03/17/24 18:44>
-
03/17/24 16:30
03/17/24 16:30
Laboratory Results
APTT 41.5 Sec (23.4-35.0) H 03/17/24 16:30
Total Bilirubin 0.7 mg/dl (0.2-1.3) 03/17/24 16:30
AST 43 U/L (17-59) 03/17/24 16:30
ALT 18 U/L (0-50) 03/17/24 16:30
Alkaline Phosphatase 56 U/L (38-126) 03/17/24 16:30
Data Reviewed
<JORGE Panda - Last Filed: 03/17/24 18:44>
-
Lab Data: Labs Reviewed by me
Impression/Plan
<JORGE Panda - Last Filed: 03/17/24 18:44>
-
Impression/plan:
Admit to IMU
# Acute rectal bleeding secondary to radiation proctitis
#Prostate cancer August 2022 [facility]/radiation
-Hgb 5.5, blood consent obtained
-Transfused 2 units PRBC
-Consult Dr. Trinidad patient for OR tomorrow 03/18/2024 for Formalin application to the bleeding site
-N.p.o. after midnight
-IV Protonix 40 mg now
-Hold aspirin 81 mg daily-patient took today 03/17/2024
-Patient stopped Eliquis on 03/15/2024
#Acute hypotension secondary to hemorrhagic shock
#Acute on chronic blood loss anemia
#Essential HTN
#Left renal artery stenosis Hx
BP 86/39, plan for 2 units PRBCs
-Hold Lasix 40 mg daily, metoprolol tartrate 50 mg every 8 hours
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
Creat 2.6/bun 68
-Patient getting 2 units PRBC
-Follow BMP
#Acute hyperkalemia in setting of FER
K 6
-Lokelma, IV insulin, IV dextrose
-Check EKG
-Follow BMP
#[id number]-ciijlrrqg
-Status post ablation March 2020
#Permanent pacemaker
-Continue Tikosyn 500 mcg p.o. daily
-Hold metoprolol tartrate 50 mg every 8 hours
-Consult CBC cardiology
-Hold Eliquis and aspirin(patient took this a.m. 03/17/2024)
#Asthma-no acute exacerbation
-Continue albuterol every 6 as needed wheezing
-Continue Breo Ellipta/Incruse Ellipta
#AVR, MVR replacement replacement
#Pericardial effusion with pericardiocentesis 08/06/2019 status post AVR/MVR/maze 08/06/2019
#Hypothyroidism
-Continue levothyroxine 25 mcg p.o. daily
#Gastritis/duodenitis December 2004
GI bleed Hx due to perforated gastric ulcer December 2004
-Patient reports was treated with Protonix
#CAD cardiac stent December 2004
-Hold aspirin 81 mg daily due to current anemia/bleeding
Other PMH:
Hepatitis A Hx
Femur fracture September 30, 2022
DVT prophylaxis
SCDs
Full code per Dr. Arvizu's discussion with patient and patient's Rosita
<Curt Marquez MD - Last Filed: 03/17/24 18:47>
-
Impression/plan:
Admit to IMU
# Acute rectal bleeding secondary to radiation proctitis
#Prostate cancer August 2022 [facility]/radiation
-Hgb 5.5, blood consent obtained
-Transfused 2 units PRBC
-Consult Dr. Trinidad patient for OR tomorrow 03/18/2024 for Formalin application to the bleeding site
-N.p.o. after midnight
-IV Protonix 40 mg now
-aspirin 81 mg daily-patient took today 03/17/2024
-Patient stopped Eliquis on 03/15/2024
#Acute hypotension secondary to hemorrhagic shock
#Acute on chronic blood loss anemia
#Essential HTN
#Left renal artery stenosis Hx
BP 86/39, plan for 2 units PRBCs
-Hold Lasix 40 mg daily, metoprolol tartrate 50 mg every 8 hours
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
Creat 2.6/bun 68
-Patient getting 2 units PRBC
-Follow BMP
#Acute hyperkalemia in setting of FER
K 6
-Lokelma, IV insulin, IV dextrose
Monitor on telemetry.
-Follow BMP
#E-rlg-perapsbwgy.
-Status post ablation March 2020
#Permanent pacemaker
-Continue Tikosyn 500 mcg p.o. daily
-Hold metoprolol tartrate 50 mg every 8 hours
-Consult CBC cardiology
-Hold Eliquis.
#COPD/Asthma-no acute exacerbation
-Continue albuterol every 6 as needed wheezing
-Continue Breo Ellipta/Incruse Ellipta
#AVR, MVR replacement replacement
#Pericardial effusion with pericardiocentesis 08/06/2019 status post AVR/MVR/maze 08/06/2019
#Hypothyroidism
-Continue levothyroxine 25 mcg p.o. daily
#Gastritis/duodenitis December 2004
GI bleed Hx due to perforated gastric ulcer December 2004
-Patient reports was treated with Protonix
#CAD cardiac stent December 2004
-Hold aspirin 81 mg daily due to current anemia/bleeding
Other PMH:
Hepatitis A Hx
Femur fracture September 30, 2022
DVT prophylaxis
SCDs
Full code per Dr. Arvizu's discussion with patient and patient's Rosita
I saw and examined the patient.
The ORCHARD MANAGER or PA's note was reviewed and I agree with the note.
Comment:
Chief complaint on admission, rectal bleeding with symptomatic anemia
History of present illness :83 years old male presented with symptomatic anemia/shortness of breath/weakness/inability to walk and was found to have hemoglobin around 5.5. Patient reported rectal bleeding, and frequent with the blood clots at time
for almost 2 weeks. Patient reported that he visited transfusion center received total of 3 units of blood in the last 9 days. He recalled last hemoglobin was around 8. Patient has history of recurrent GI bleed secondary to radiation proctitis.
Patient is on aspirin and and Eliquis. He stopped taking his aspirin was stopped Eliquis around 2 days ago.
Patient denied abdominal pain, nausea or vomiting. He has history of gastric ulcer but his stomach has been doing with the Protonix therapy that he has been on for many years
Past medical history include coronary artery disease, sick sinus syndrome status post pacemaker, bioprosthetic aortic and mitral valve replacement, COPD, type 2 diabetes, Hypertension, hepatitis A, pericardial effusion, prostate cancer, heart
failure with a preserved ejection fraction, hyperlipidemia, persistent atrial fibrillation, atrial flutter, tricuspid regurgitation, chronic anticoagulation.
Past surgical history, no recent major surgery.
Family history, his father had prostate cancer, mother had pulmonary fibrosis.
Social history: Former smoker, social alcohol intake, , lives with , uses a cane. 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
Allergies, no known drug allergy.
Home Medications
umeclidinium 62.5 mcg/actuation blister powder for inhalation (Incruse Ellipta) 62.5 mcg IH R DAILY Lung/breathing issues 04/28/19
furosemide 40 mg tablet 40 mg PO DAILY Fluid retention/Swelling ##0 08/10/19
aspirin 81 mg tablet,delayed release 81 mg PO DAILY Blood clot prevention/tx ##0 02/02/20
dofetilide 500 mcg capsule 500 mcg PO BID 03/23/20
metoprolol tartrate 50 mg tablet 50 mg PO Q8H 03/23/20
psyllium husk 3.4 gram/5.4 gram oral powder (Metamucil) 1 scoop PO DAILY 03/23/20
fluticasone furoate 200 mcg-vilanterol 25 mcg/dose inhalation powder (Breo Ellipta) 1 inh inhalation R DAILY 11/25/22
levothyroxine 25 mcg tablet 25 mcg PO DAILY 11/25/22
albuterol sulfate 90 mcg/actuation aerosol inhaler 1 puff inhalation R Q6HPRN PRN wheezing 06/23/23
alendronate 70 mg tablet 70 mg PO MO 06/23/23
atorvastatin 80 mg tablet 40 mg PO QPM 06/23/23
guaifenesin 600 mg tablet, extended release 12 hr (Mucinex) 600 mg PO [id number] PRN allergies 06/23/23
acetaminophen 500 mg tablet (Tylenol Extra Strength) 1,000 mg PO Q6HPRN PRN mild pain 03/17/24
potassium chloride 10 mEq tablet,extended release(part/cryst) 10 meq PO DAILY 03/17/24
Physical Exam
General: Comfortable, Conversant and Other (Generalized fatigue); No Pain, Fever or Chills
HEENT: NormoCephalic, Moist mucous membranes, PERRLA, No Ptosis and Other (Pale conjunctiva)
Respiratory: mild rales at bases, no wheezes.
Cardiac: S1/S2
GI: Soft, Non Tender, Non Distended, Normal Bowel Sounds
Rectal: No active bleeding seen.
Genito-urinary: No Mullen, no flank tenderness.
Musculoskeletal: No Clubbing, No Cyanosis and No Edema
Skin: Warm, Dry and Other (No bruising noted); No Rash or Jaundice
Neuro: AO x 3, No Motor Deficits, Cranial Nerves Intact, No Sensory Deficits and Other (Fatigue); No Slurred Speech, Facial Droop, Tremors or Sedated
Psych: Calm
Assessment and plan
# Acute rectal bleeding secondary to radiation proctitis
#Prostate cancer August 2022 [facility]/radiation
-Hgb 5.5, blood consent obtained
-Transfused 2 units PRBC for now and plan for another 2 units. Target hemoglobin should be around more than 8
-Consult Dr. Trinidad patient for OR tomorrow 03/18/2024 for Formalin application to the bleeding site
-N.p.o. after midnight
-IV Protonix 40 mg now
-Okay to continue aspirin 81 mg daily-patient took today 03/17/2024
-Patient stopped Eliquis on 03/15/2024.
#Acute hypotension secondary to hemorrhagic shock
Acute on chronic blood loss anemia
Pressure was around 86 but improved after starting transfusion, currently 103
#Left renal artery stenosis Hx
Continue with the blood transfusion. Monitor in IMU
-Hold Lasix 40 mg daily, metoprolol tartrate 50 mg every 8 hours
# Hyperkalemia, potassium around 6. Hold potassium supplement.
give stat dose of Lokelma and D5 with insulin
re-check K level in 2 hours. Monitor on telemetry.
# Persistent A-fib
-Status post ablation March 2020
#Permanent pacemaker
-Continue Tikosyn 500 mcg p.o. daily
-Hold metoprolol tartrate 50 mg every 8 hours
-Consult CBC cardiology for further management and decision regarding anticoagulation.
# COPD/asthma-no acute exacerbation
Patient reports chronic cough but has not worsened recently
-Continue albuterol every 6 as needed wheezing
-Continue Breo Ellipta/Incruse Ellipta
#AVR, MVR replacement replacement
#Pericardial effusion with pericardiocentesis 08/06/2019 status post AVR/MVR/maze 08/06/2019
#Hypothyroidism
-Continue levothyroxine 25 mcg p.o. daily
#History of Gastritis/duodenitis December 2004
Patient denied abdominal pain, nausea or vomiting
GI bleed Hx due to perforated gastric ulcer December 2004
-Patient reports was treated with Protonix
#CAD cardiac stent December 2004
No chest pain
Continue with aspirin 81 mg daily for now
# CODE STATUS: Full code. Patient wanted CPR but not prolonged.
Other PMH:
Hepatitis A Hx
Femur fracture September 30, 2022
DVT prophylaxis
SCDs
Total critical time spent to see the patient, examine the patient, review data and lab results, review of records from outpatient cardiology and surgery offices, discussed treatment plan with patient, his , ER doctor and nursing staff around 79
minutes
[2024-03-17] MEDS: PROTONIX IV 80 MG IV (18:01)
--- NOTE | 2024-03-17 18:24 | W.PN.UPDATE ---
Update Note
Progress Note Update
Chief complaint on admission, rectal bleeding with symptomatic anemia
History of present illness :83 years old male presented with symptomatic anemia/shortness of breath/weakness/inability to walk and was found to have hemoglobin around 5.5. Patient reported rectal bleeding, and frequent with the blood clots at time
for almost 2 weeks. Patient reported that he visited transfusion center received total of 3 units of blood in the last 9 days. He recalled last hemoglobin was around 8. Patient has history of recurrent GI bleed secondary to radiation proctitis.
Patient is on aspirin and and Eliquis. He stopped taking his aspirin was stopped Eliquis around 2 days ago.
Patient denied abdominal pain, nausea or vomiting. He has history of gastric ulcer but his stomach has been doing with the Protonix therapy that he has been on for many years
Past medical history include coronary artery disease, sick sinus syndrome status post pacemaker, bioprosthetic aortic and mitral valve replacement, COPD, type 2 diabetes, Hypertension, hepatitis A, pericardial effusion, prostate cancer, heart
failure with a preserved ejection fraction, hyperlipidemia, persistent atrial fibrillation, atrial flutter, tricuspid regurgitation, chronic anticoagulation.
Past surgical history, no recent major surgery.
Family history, his father had prostate cancer, mother had pulmonary fibrosis.
Social history: Former smoker, social alcohol intake, , lives with , uses a cane. 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
Allergies, no known drug allergy.
Home Medications
umeclidinium 62.5 mcg/actuation blister powder for inhalation (Incruse Ellipta) 62.5 mcg IH R DAILY Lung/breathing issues 04/28/19
furosemide 40 mg tablet 40 mg PO DAILY Fluid retention/Swelling ##0 08/10/19
aspirin 81 mg tablet,delayed release 81 mg PO DAILY Blood clot prevention/tx ##0 02/02/20
dofetilide 500 mcg capsule 500 mcg PO BID 03/23/20
metoprolol tartrate 50 mg tablet 50 mg PO Q8H 03/23/20
psyllium husk 3.4 gram/5.4 gram oral powder (Metamucil) 1 scoop PO DAILY 03/23/20
fluticasone furoate 200 mcg-vilanterol 25 mcg/dose inhalation powder (Breo Ellipta) 1 inh inhalation R DAILY 11/25/22
levothyroxine 25 mcg tablet 25 mcg PO DAILY 11/25/22
albuterol sulfate 90 mcg/actuation aerosol inhaler 1 puff inhalation R Q6HPRN PRN wheezing 06/23/23
alendronate 70 mg tablet 70 mg PO MO 06/23/23
atorvastatin 80 mg tablet 40 mg PO QPM 06/23/23
guaifenesin 600 mg tablet, extended release 12 hr (Mucinex) 600 mg PO [id number] PRN allergies 06/23/23
acetaminophen 500 mg tablet (Tylenol Extra Strength) 1,000 mg PO Q6HPRN PRN mild pain 03/17/24
potassium chloride 10 mEq tablet,extended release(part/cryst) 10 meq PO DAILY 03/17/24
Physical Exam
General: Comfortable, Conversant and Other (Generalized fatigue); No Pain, Fever or Chills
HEENT: NormoCephalic, Moist mucous membranes, PERRLA, No Ptosis and Other (Pale conjunctiva)
Respiratory: mild rales at bases, no wheezes.
Cardiac: S1/S2
GI: Soft, Non Tender, Non Distended, Normal Bowel Sounds
Rectal: No active bleeding seen.
Genito-urinary: No Mullen, no flank tenderness.
Musculoskeletal: No Clubbing, No Cyanosis and No Edema
Skin: Warm, Dry and Other (No bruising noted); No Rash or Jaundice
Neuro: AO x 3, No Motor Deficits, Cranial Nerves Intact, No Sensory Deficits and Other (Fatigue); No Slurred Speech, Facial Droop, Tremors or Sedated
Psych: Calm
Assessment and plan
# Acute rectal bleeding secondary to radiation proctitis
#Prostate cancer August 2022 [facility]/radiation
-Hgb 5.5, blood consent obtained
-Transfused 2 units PRBC for now and plan for another 2 units. Target hemoglobin should be around more than 8
-Consult Dr. Trinidad patient for OR tomorrow 03/18/2024 for Formalin application to the bleeding site
-N.p.o. after midnight
-IV Protonix 40 mg now
-Okay to continue aspirin 81 mg daily-patient took today 03/17/2024
-Patient stopped Eliquis on 03/15/2024.
#Acute hypotension secondary to hemorrhagic shock
Acute on chronic blood loss anemia
Pressure was around 86 but improved after starting transfusion, currently 103
#Left renal artery stenosis Hx
Continue with the blood transfusion. Monitor in IMU
-Hold Lasix 40 mg daily, metoprolol tartrate 50 mg every 8 hours
# Hyperkalemia, potassium around 6. Hold potassium supplement.
give stat dose of Lokelma and D5 with insulin
re-check K level in 2 hours. Monitor on telemetry.
# Persistent A-fib
-Status post ablation March 2020
#Permanent pacemaker
-Continue Tikosyn 500 mcg p.o. daily
-Hold metoprolol tartrate 50 mg every 8 hours
-Consult CBC cardiology for further management and decision regarding anticoagulation.
# COPD/asthma-no acute exacerbation
Patient reports chronic cough but has not worsened recently
-Continue albuterol every 6 as needed wheezing
-Continue Breo Ellipta/Incruse Ellipta
#AVR, MVR replacement replacement
#Pericardial effusion with pericardiocentesis 08/06/2019 status post AVR/MVR/maze 08/06/2019
#Hypothyroidism
-Continue levothyroxine 25 mcg p.o. daily
#History of Gastritis/duodenitis December 2004
Patient denied abdominal pain, nausea or vomiting
GI bleed Hx due to perforated gastric ulcer December 2004
-Patient reports was treated with Protonix
#CAD cardiac stent December 2004
No chest pain
Continue with aspirin 81 mg daily for now
# CODE STATUS: Full code. Patient wanted CPR but not prolonged.
Other PMH:
Hepatitis A Hx
Femur fracture September 30, 2022
DVT prophylaxis
SCDs
Total critical time spent to see the patient, examine the patient, review data and lab results, review of records from outpatient cardiology and surgery offices, discussed treatment plan with patient, his , ER doctor and nursing staff around 79
minutes
[2024-03-17] MEDS: DEXTROSE 50% SYRINGE 25 GRAMS IV (19:02)
[2024-03-17] MEDS: LOKELMA 10 GRAM PO (19:03)
[2024-03-17] MEDS: NOVOLIN R 5 UNITS IV (19:03)
[2024-03-17 19:07] LABS: Glucose - Point of Care 44 mg/dl (70-99)
[2024-03-17 19:31] LABS: Glucose - Point of Care 93 mg/dl (70-99)
[2024-03-17 20:12] LABS: Glucose - Point of Care 98 mg/dl (70-99)
--- NOTE | 2024-03-17 20:35 | PTCARENOTE ---
Addendum entered by Yohana Carey RN 03/18/24 02:31:
Patient received 1 unit PRBC's and tolerated with no signs of an adverse reaction. Pt BP increased most recent BP 106/53. Pt afebrile. Spot checked O2 at 94%.
Original Note:
Patient transported to IMU in a stretcher. Received report from RN over the phone and bedside. Pt AAOx3 and pleasant. A-paced on tele. Soft BPs 90's/50's. Unable to obtain accurate O2 reading with pulse ox stickers. Spot check reading of 95% on 3L
NC. Fine crackles heard at the bases. Non-productive frequent cough patient states he 'has had for years'. Admission information obtained and charted. Assessment and vital signs charted. Pt is due for 2 units PRBC. Pt aware of the plan of care. Pt
oriented to the unit, call gifford is within reach.
[2024-03-17] MEDS: TIKOSYN PO (23:41)
[2024-03-18] VITALS (21 sets, daily range): BP systolic 97–132; BP diastolic 43–73; PULSE 61–71; O2SAT 91; BMI 22.9
[2024-03-18 02:50] LABS: Potassium 5.1 mmol/L (3.5-5.1)
[2024-03-18 05:18] LABS: Glucose - Point of Care 82 mg/dl (70-99)
--- NOTE | 2024-03-18 05:18 | PTCARENOTE ---
Pt received insulin, dextrose, and lokelma in ED. Most recent blood sugar was 82. Did not obtain Q2x2 blood sugar.
[2024-03-18 06:37] LABS: % Basophils 0.1 % (0-2); % Eosinophils 0.6 % (0-6); % Immature Granulocytes 0.6 % (0-0.5); % Lymphocytes 2.9 % (20.5-51.1); % Monocytes 17.8 % (1.7-9.3); Absolute Lymphocytes 0.2 10^3/uL (1.2-3.4); Absolute Monocytes 1.2 10^3/uL (0.1-0.6); Absolute Neutrophils 5.4 10^3/uL (1.4-6.5); Hematocrit 27.7 % (39.0-52.0); Hemoglobin 8.9 g/dL (13.0-18.0); Mean Corp Hgb Conc. 32.1 g/dL (33.0-37.0); Mean Corpuscular Hgb 29.3 pg (27.0-31.0); Mean Corpuscular Volume 91.1 fL (80.0-94.0); Mean Platelet Volume 9.5 fL (7.4-10.4); Nucleated Red Blood Cells % 0.6 % (-); Platelet Count 190 10^3/uL (130-400); Red Blood Cell Count 3.04 10^6/uL (4.70-6.10); Red Cell Dist. Width 15.9 % (11.5-14.5); White Blood Cell Count 6.9 10^3/uL (4.8-10.8)
[2024-03-18 06:43] LABS: ALT (SGPT) 25 U/L (0-50); AST (SGOT) 48 U/L (17-59); Albumin 3.3 g/dl (3.5-5.0); Alkaline Phosphatase 81 U/L (38-126); Blood Urea Nitrogen 71 mg/dl (9-20); Calcium 8.3 mg/dl (8.4-10.2); Carbon Dioxide 20 mmol/L (22-30); Chloride 110 mmol/L (98-107); Estimated Creatinine Clearance 21 ml/min; Glucose 84 mg/dl (70-99); Potassium 5.3 mmol/L (3.5-5.1); Sodium 142 mmol/L (135-145); Total Bilirubin 1.7 mg/dl (0.2-1.3); Total Protein 5.8 g/dl (6.3-8.2); eGFR 21.57
[2024-03-18] MEDS: SYMBICORT 160/4.5 MCG INHALER 2 PUFF INH ×2 (08:22→19:52)
[2024-03-18] MEDS: TIKOSYN 500 MCG PO (08:42)
--- NOTE | 2024-03-18 09:03 | W.PN.HOSP.TC ---
Today's Communication/Plan
-
Follow H&H
Check a bladder scan and ultrasound of the renal tract, follow Cr
Hold Tikosyn
Continue hold anticoagulation and aspirin
Await cardiology input
Assessment / Plan
Assessment / Plan
# Acute recurrent rectal bleeding secondary to radiation proctitis-hemodynamically stable
#Prostate cancer August 2022 [facility]/radiation
-Patient says he has been having recurrent rectal bleeding since August last year. Patient required transfusion support in the past 2.
-Not meeting Hgb 5.5
-Transfused 2 units PRBC
-Consulted Dr. Trinidad patient for Formalin application to the bleeding site-with FER and acute hypoxic respiratory insufficiency will hold on colonoscopy formalin application today. Patient is not actively bleeding today.
-Patient stopped Eliquis on 03/15/2024
-Patient on combination of anticoagulant and aspirin-aspirin is on hold-will check with cardiology within need to resume it
#Acute hypotension secondary to hemorrhagic shock
#Acute on chronic blood loss anemia
#Essential HTN
#Left renal artery stenosis Hx
Improved hemodynamics status post transfusion support
-Hold Lasix 40 mg daily, metoprolol tartrate 50 mg every 8 hours
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
Creat 2.6/bun 68
-Blood pressure improved with creatinine remains elevated.
-Patient denies any irritative symptoms or symptoms-check a bladder scan and renal ultrasound.
-Continue hold diuretic
- Improving HCO3
#Acute hyperkalemia in setting of FER
K 6
-s/p Lokelma, IV insulin, IV dextrose
- Improved K
#[id number]
-Status post ablation March 2020
#Permanent pacemaker
-With FER and prolonged QTc hold Tikosyn
-cw metoprolol tartrate 50 mg every 8 hours with parameters
-Consult CBC cardiology
-Hold Eliquis and aspirin(patient took this a.m. 03/17/2024)
#Asthma-no acute exacerbation
-Continue albuterol every 6 as needed wheezing
-Continue Breo Ellipta/Incruse Ellipta
# Acute hypoxic respiratory insufficiency-patient is requiring oxygen though he is asymptomatic.
-Obtain a chest x-ray today
#AVR, MVR replacement replacement
#Pericardial effusion with pericardiocentesis 08/06/2019 status post AVR/MVR/maze 08/06/2019
#Hypothyroidism
-Continue levothyroxine 25 mcg p.o. daily
#Gastritis/duodenitis December 2004
GI bleed Hx due to perforated gastric ulcer December 2004
-Patient reports was treated with Protonix
#CAD cardiac stent December 2004
-Hold aspirin 81 mg daily due to current anemia/bleeding
Other PMH:
Hepatitis A Hx
Femur fracture September 30, 2022
DVT prophylaxis
SCDs
Full code per Dr. Arvizu's discussion with patient and patient's Rosita
Discussed with colorectal surgery today
Discussed with RN
Level 3 time
Anticipated Discharge: > 48 hours
Subjective/Interval History
-
Date of Service: March 18, 2024
Denies having any bowel movements or any rectal bleeding since admission.
No nausea vomiting.
Feels comfortable without shortness of breath or chest pain.
Has a cough which she states is chronic from his COPD. Denies any productive phlegm.
No nausea vomiting.
Objective Data
-
Labs:
Laboratory Results
03/17/24 03/18/24 03/18/24
16:30 02:18 05:47
WBC 6.9
Hgb 8.9 L D
Hct 27.7 L
Plt Count 190
Sodium 138 142
Potassium 6.0 H 5.1 5.3 H
Chloride 104 110 H
Carbon Dioxide 15 L 20 L
BUN 68 H 71 H
Creatinine 2.6 H 2.8 H
Glucose 91 84
Calcium 8.5 8.3 L
Total Bilirubin 0.7 1.7 H D
AST 43 48
ALT 18 25
Alkaline Phosphatase 56 81
Vital Signs:
Vital Signs
Temp Pulse Resp BP Pulse Ox
98.1 F 68 14 112/73 93
03/18/24 07:54 03/18/24 08:25 03/18/24 08:25 03/18/24 06:00 03/18/24 08:25
I&O
03/17/24 03/18/24 03/19/24
06:59 06:59 06:59
Intake Total 1000 / 1000
Output Total 250 / 250
Balance 750 / 750
Review of Systems
-
Constitutional: Denies Fever
Abdomen/GI: Denies Abdominal Pain
Genitourinary: Reports Other (hx of prostate cancer); Denies Dysuria, Frequency or Difficulty Voiding
Neuro: Denies Dizzy
Physical Exam
-
General: No Apparent Distress
HEENT: Moist Mucous Membranes
Respiratory: Wheezes (BL), Crackles (bibasal) and Non Labored Respirations; Negative Accessory Resp Muscle Use
Cardiac: Regular Rhythm and S1/S2
GI: Soft, Nontender, Nondistended and Normal Bowel Sounds
Neuro: AO x 3
Psych: Calm
Data Reviewed
-
Labs: Labs Reviewed by me
--- NOTE | 2024-03-18 10:16 | CON.CAR ---
Addendum entered and electronically signed by Srinivas Palm MD 03/18/24 13:06:
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
prostate cancer with hx radiation admitted with symptomatic anemia, Hgb 5.5. He felt very weak. No chest pain. Exam with RRR, no murmurs, no edema. EKG: Ap, Vs.
There are tentative plans for rectal formalin this admission.
Hold ASA, eliquis given severe anemia. Likely resume eliquis alone if bleeding is able to be treated. Dose will be 2.5mg if Cr remains 1.5 or above.
Hold tikosyn given FER, and reassess in AM.
Original Note:
Consultation
Consultation Request
Date/Time Consultation Requested: 03/17/24 1839
Date/Time Consultation Performed: 03/18/24 1017
Requesting Provider: Shanta Colmenares
Performing Provider: Romina PATEL for Dr. Palm
Reason for Consultation: rectal bleeding on ASA, Eliquis
Medical History
-
Chief Complaint: weakness
History of Present Illness:
83 y/o male (Patient of Dr. 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
COPD on O2 by NC, prostate cancer with hx radiation who is here for severe weakness and he has been having issues with rectal bleeding with plans for management by CRS with topical formalin. In ER, hgb 5.5. He is s/p 3 units PRBC's with appropriate
increase in hgb. He has known radiation proctitis. His last bleeding was on Friday, when he stopped his Eliquis for the planned procedure. He has remained on aspirin, though currently held with severe anemia. Otherwise, hyperkalemia noted in
setting of FER. Dofetilide is held due to FER and prolonged QTC in this setting. BP's were low, but now improved s/p blood products. He is in no distress at the time of my assessment. He is on 4L NC and does have expiratory wheezing and coarse
sounds throughout. He denies any SOB, fever, or chills.
Past Medical History
Past Medical History: Arrhythmias, CAD, Cancer, CHF, COPD and Valvular Disease
Social History
Tobacco: Former Smoker
Family History
Family History: Reviewed & Not Pertinent
Allergies / Home Medications
Allergy/AdvReac Type Severity Reaction Status Date / Time
No Known Allergies Allergy Verified 03/17/24 16:21
�Medication �Instructions �Recorded �Confirmed �Type
umeclidinium 62.5 mcg/actuation 62.5 mcg IH R DAILY Lung/breathing 04/28/19 03/17/24 History
blister powder for inhalation issues
(Incruse Ellipta)
furosemide 40 mg tablet 40 mg PO DAILY Fluid 08/10/19 03/17/24 Rx
retention/Swelling ##0
aspirin 81 mg tablet,delayed 81 mg PO DAILY Blood clot 02/02/20 03/17/24 Rx
release prevention/tx ##0
dofetilide 500 mcg capsule 500 mcg PO BID 03/23/20 03/17/24 History
metoprolol tartrate 50 mg tablet 50 mg PO Q8H 03/23/20 03/17/24 History
psyllium husk 3.4 gram/5.4 gram 1 scoop PO DAILY 03/23/20 03/17/24 History
oral powder (Metamucil)
fluticasone furoate 200 1 inh inhalation R DAILY 11/25/22 03/17/24 History
mcg-vilanterol 25 mcg/dose
inhalation powder (Breo Ellipta)
levothyroxine 25 mcg tablet 25 mcg PO DAILY 11/25/22 03/17/24 History
albuterol sulfate 90 mcg/actuation 1 puff inhalation R Q6HPRN PRN 06/23/23 03/17/24 History
aerosol inhaler wheezing
alendronate 70 mg tablet 70 mg PO MO 06/23/23 03/17/24 History
atorvastatin 80 mg tablet 40 mg PO QPM 06/23/23 03/17/24 History
guaifenesin 600 mg tablet, 600 mg PO [id number] PRN allergies 06/23/23 03/17/24 History
extended release 12 hr (Mucinex)
Eliquis 5 mg PO BID 03/17/24 03/17/24 History
acetaminophen 500 mg tablet 1,000 mg PO Q6HPRN PRN mild pain 03/17/24 03/17/24 History
(Tylenol Extra Strength)
potassium chloride 10 mEq 10 meq PO DAILY 03/17/24 03/17/24 History
tablet,extended release(part/cryst)
Review of Systems
-
History Source: Patient
All other systems: Negative unless noted
Abdomen/GI: Other (rectal bleeding)
Neurological: Weakness (severe)
Physical Exam
Vital Signs
Temp Pulse Resp BP Pulse Ox
98.1 F 68 14 112/73 93
03/18/24 07:54 03/18/24 08:25 03/18/24 08:25 03/18/24 06:00 03/18/24 08:25
Lab Results
03/18/24 05:47
03/18/24 05:47
Physical Exam
General: Well Developed, Well Nourished and No Apparent Distress
HEENT: Normocephalic and Anicteric
Respiratory: Wheezes and Other (coarse lung sounds throughout, on O2 by NC)
Cardiac: Regular Rhythm
Musculoskeletal: No Edema
Skin: Warm and Dry
Neuro: AO x 3
Psych: Calm
Impression / Plan
-
Severe anemia, [id number]:
-hgb 5.5, now improved to 8.9 s/p 3 units PRBC's
-related to rectal bleeding in setting of radiation proctitis. Plan was for procedure with CRS, but on hold with acute illness.
-Eliquis, of course, held at this time. He is also on aspirin, which is also held with severe anemia.
-surgery consulted
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
-no CP or SOB
-on ASA, statin, and BB as OP. ASA held for now as above.
AFIB, paroxysmal: hx ablation
-stable in SR
-Tikosyn held for now with FER, prolonged QTC in this setting
-continue BB as tolerated
-Eliquis held for severe anemia, rectal bleeding. [id number] score is 4 for age, CAD, CHF
Hyperkalemia:
-improving, monitor closely
FER:
-in setting of hypotension, severe anemia
-w/u initiated by primary team, diuretic held
-may need nephro
hx AVR, MVR:
-stable on most recent echo
-monitor over time
Pacemaker:
-stable on OP checks
HFpEF:
-chronic
-does not appear overloaded to assessment
-monitor volume
COPD:
-he is wheezing and coarse to assessment
-getting duonebs
-remains on 4L NC
-consider CXR if continues to need O2
Data Reviewed
-
EKG: Tracing Personally Visualized and interpreted (Apaced 66 BPM LBBB)
Medical Tests (Nuc Med, Echo etc): Report Reviewed by me (Echo 03/12/23: EF 55-60%. Asymmetric septal hypertrophy (IVS 1.6cm, LVPW 1.3cm). Bioprosthetic mitral valve replacement with a mean gradient of 5 mmHg. Bioprosthetic aortic valve replacement.
The peak/mean gradients across the valve are 14/9 mmHg. Ectatic proximal ascending aorta: 3.8 cm.)
Labs: Labs Reviewed by me
--- NOTE | 2024-03-18 11:48 | CON.CRS ---
Consultation
-
Date/Time Consultation Requested: 03/17/2024, 18:40
Date/Time Consultation Performed: 03/18/2024, 08:30
Requesting Provider: Shanta Colmenares
Performing Provider: Darnell Nunez MD
Reason for Consultation: bleeding
Medical History
-
Chief Complaint: rectal bleeding
History of Present Illness:
83-year-old male, with a history of radiation proctitis secondary to prostate cancer status post radiation, presents to [facility] via ambulance. The patient has an extensive past medical history of a flexible sigmoidoscopy with APC laser
treatment in the past with Dr. Trinidad on 12/17/2023. He is chronically on Eliquis due to atrial fibrillation. Unfortunately this treatment did not work and he continued to bleed at home. He saw Dr. Trinidad in the office on 01/05/2024 and he was
scheduled for rectal formalin treatment today. He called our office yesterday complaining of large bouts of bright red blood per rectum earlier this week as well as shortness of breath, generalized weakness, and inability to get off of the floor.
I talked to his and they called 911. On admission to [facility], the patient's hemoglobin was 5.5. He subsequently underwent a transfusion of 3 units of packed red blood cells. Initially his creatinine was 2.6 and has risen to 2.8 today.
He currently does not complain of any abdominal pain and has not had any bleeding since stopping his Eliquis 3 days ago for surgery. He states he has not been urinating that much. His last bowel movement was 2 days ago and was not bloody. He
currently denies any nausea or vomiting. He denies any chest pain currently. He denies any shortness of breath.
Past Medical History
Past Medical History: Other (Radiation proctitis, history of prostate cancer status post radiation in 2022 at [place], aortic valve replacement, history of pericardial effusion, permanent pacemaker, asthma, hypertension, left renal artery
stenosis, mitral valve replacement, hypothyroidism, CAD, hepatitis A, femur fracture)
Past Surgical History: Other (Femur fracture repair, permanent pacemaker, pericardiocentesis, atrial fibrillation ablation)
Social History
Tobacco: Former Smoker (Quit at 25 years old)
Alcohol: Occasional
Drug: None
Personal:
Employment: Retired
Family History
Family History: Reviewed & Not Pertinent
Allergies / Home Medications
Allergy/AdvReac Type Severity Reaction Status Date / Time
No Known Allergies Allergy Verified 03/17/24 16:21
�Medication �Instructions �Recorded �Confirmed �Type
umeclidinium 62.5 mcg/actuation 62.5 mcg IH R DAILY Lung/breathing 04/28/19 03/17/24 History
blister powder for inhalation issues
(Incruse Ellipta)
furosemide 40 mg tablet 40 mg PO DAILY Fluid 08/10/19 03/17/24 Rx
retention/Swelling ##0
aspirin 81 mg tablet,delayed 81 mg PO DAILY Blood clot 02/02/20 03/17/24 Rx
release prevention/tx ##0
dofetilide 500 mcg capsule 500 mcg PO BID 03/23/20 03/17/24 History
metoprolol tartrate 50 mg tablet 50 mg PO Q8H 03/23/20 03/17/24 History
psyllium husk 3.4 gram/5.4 gram 1 scoop PO DAILY 03/23/20 03/17/24 History
oral powder (Metamucil)
fluticasone furoate 200 1 inh inhalation R DAILY 11/25/22 03/17/24 History
mcg-vilanterol 25 mcg/dose
inhalation powder (Breo Ellipta)
levothyroxine 25 mcg tablet 25 mcg PO DAILY 11/25/22 03/17/24 History
albuterol sulfate 90 mcg/actuation 1 puff inhalation R Q6HPRN PRN 06/23/23 03/17/24 History
aerosol inhaler wheezing
alendronate 70 mg tablet 70 mg PO MO 06/23/23 03/17/24 History
atorvastatin 80 mg tablet 40 mg PO QPM 06/23/23 03/17/24 History
guaifenesin 600 mg tablet, 600 mg PO [id number] PRN allergies 06/23/23 03/17/24 History
extended release 12 hr (Mucinex)
Eliquis 5 mg PO BID 03/17/24 03/17/24 History
acetaminophen 500 mg tablet 1,000 mg PO Q6HPRN PRN mild pain 03/17/24 03/17/24 History
(Tylenol Extra Strength)
potassium chloride 10 mEq 10 meq PO DAILY 03/17/24 03/17/24 History
tablet,extended release(part/cryst)
Review of Systems
-
History Source: Patient
Constitutional: Fatigue and Other (Generalized weakness)
Respiratory: Trouble Breathing
Abdomen/GI: Bloody Stools
A 10 point review of systems was completed, and was negative except as per HPI.
Physical Exam
Vital Signs
Temp 98.1 F 03/18/24 07:54
Pulse 68 03/18/24 08:25
Resp Rate 14 03/18/24 08:25
Blood pressure 112/73 03/18/24 06:00
SaO2 93 03/18/24 08:25
03/17/24 03/18/24 03/19/24
06:59 06:59 06:59
Actual Weight 74.4 kg
Body Mass Index (BMI) 22.9
Lab Results / Allergies
03/18/24 05:47
03/18/24 05:47
WBC 6.9 10^3/uL (4.8-10.8) 03/18/24 05:47
Hgb 8.9 g/dL (13.0-18.0) L D 03/18/24 05:47
Hct 27.7 % (39.0-52.0) L 03/18/24 05:47
Plt Count 190 10^3/uL (130-400) 03/18/24 05:47
Abs Immat Gran (auto) 0.0 10^3/uL (0-0.05) 03/18/24 05:47
Neutrophils % 78.0 % (42.2-75.2) H 03/18/24 05:47
Allergy/AdvReac Type Severity Reaction Status Date / Time
No Known Allergies Allergy Verified 03/17/24 16:21
Physical Exam
General: Well Developed, Well Nourished and No Apparent Distress
GI: Soft, Non Tender and Non Distended
Skin: Warm and Dry
Neuro: AO x 3
Psych: Calm
Data Reviewed
-
Labs: Labs Reviewed by me, Discussed with Physician and Discussed with Patient
Old Records: Reviewed
Assessment / Plan
-
Assessment: Anemia secondary to radiation proctitis, on chronic Eliquis
Plan:
OR today will be canceled given FER as well as some intermittent. Okay for diet today from our standpoint. N.p.o. at midnight for possible surgery tomorrow if his lab work improves. Continue to hold Eliquis. Continue to monitor hemoglobin,
transfuse as needed. Appreciate hospitalist and cardiology. Will follow.
[2024-03-18] MEDS: LOPRESSOR 50 MG PO (13:34)
[2024-03-18] MEDS: SYNTHROID 25 MCG PO (13:34)
--- NOTE | 2024-03-18 13:50 | CM ---
Patient with Hx prostate CA with Dx Acute recurrent rectal bleeding secondary to radiation proctitis, anemia who is s/p transfusions. O2 3L. PT Eval pending.
Spoke with patient's Rosita;
the patient resides with his in a 1 story house with 1 [address].
The patient was independent in ADLs and ambulation, using his SPC until yesterday when he needed to use his RW.
He was active, going out with friends and driving.
says patient has recently felt fatigued the past few weeks and yesterday he had a fall - he slid to the floor and required assistance from a neighbor to get up.
DME - [facility], [facility]N - [facility]
SNF - [facility]
Prior [facility]
PCP - You Thao
Pharmacy - [facility]
Plan follow up after seen by PT.
Plan follow any O2 needs at d/c.
[2024-03-18] MEDS: LOPRESSOR PO (18:20)
[2024-03-18] MEDS: NON-FORMULARY ITEM INH (19:52)
[2024-03-19] VITALS (24 sets, daily range): BP systolic 85–134; BP diastolic 36–93; O2SAT 89–94; BMI 23.0
[2024-03-19] MEDS: LOPRESSOR PO ×2 (02:08→23:08)
--- NOTE | 2024-03-19 02:28 | PTCARENOTE ---
Pt Lopressor order unclear clarified with night WATER PU[employer]ING [employer]ATION ENGINEER. Pt having run of 11 VT self correcting, diegoh WATER PU[employer]ING STATION ENGINEER made aware. Pt A-V paced at times. Pt asymptomatic bp stable at this time. Pt has no complaints at this time. Call gifford within reach. Assessment care
and vitals at this time.
[2024-03-19] MEDS: SYNTHROID 25 MCG PO (05:30)
[2024-03-19 05:56] LABS: Hematocrit 26.4 % (39.0-52.0); Hemoglobin 8.3 g/dL (13.0-18.0); Mean Corp Hgb Conc. 31.4 g/dL (33.0-37.0); Mean Corpuscular Hgb 28.6 pg (27.0-31.0); Mean Platelet Volume 9.1 fL (7.4-10.4); Platelet Count 164 10^3/uL (130-400); Red Cell Dist. Width 16.1 % (11.5-14.5); White Blood Cell Count 5.5 10^3/uL (4.8-10.8)
[2024-03-19 06:23] LABS: ALT (SGPT) 38 U/L (0-50); AST (SGOT) 60 U/L (17-59); Alkaline Phosphatase 79 U/L (38-126); Blood Urea Nitrogen 56 mg/dl (9-20); Carbon Dioxide 23 mmol/L (22-30); Chloride 112 mmol/L (98-107); Estimated Creatinine Clearance 31 ml/min; Glucose 85 mg/dl (70-99); Sodium 144 mmol/L (135-145); Total Protein 5.4 g/dl (6.3-8.2); eGFR 34.35
[2024-03-19 06:29] LABS: Potassium 4.5 mmol/L (3.5-5.1)
[2024-03-19] MEDS: NON-FORMULARY ITEM 1 MCG INH (07:38)
[2024-03-19] MEDS: SYMBICORT 160/4.5 MCG INHALER 2 PUFF INH (07:40)
--- NOTE | 2024-03-19 09:03 | W.PN.HOSP.TC ---
Today's Communication/Plan
-
Check oxygen on room air
Follow H&H and creatinine
Continue to hold diuretics and Eliquis/aspirin
Proceed with colonoscopy/formalin injection
Assessment / Plan
Assessment / Plan
# Acute recurrent rectal bleeding secondary to radiation proctitis-hemodynamically stable
#Prostate cancer August 2022 [facility]/radiation
-Patient says he has been having recurrent rectal bleeding since August last year. Patient required transfusion support in the past 2.
-Admitting Hgb 5.5
-Transfused 2 units PRBC. H&H stable since transfusion.
-Consulted Dr. Trinidad patient for Formalin application to the bleeding site-planning on the procedure today
-Patient stopped Eliquis on 03/15/2024
-Patient on combination of anticoagulant and aspirin-aspirin is on hold-cardiology do not see the need of dual agents of aspirin and Eliquis. Moving forward on Eliquis as recommended.
#Acute hypotension secondary to hemorrhagic shock
#Acute on chronic blood loss anemia
#Essential HTN
#Left renal artery stenosis Hx
Improved hemodynamics status post transfusion support. Blood pressure remained stable.
-Hold Lasix 40 mg daily, metoprolol tartrate 50 mg every 8 hours
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
Creat 2.6/bun 68
Improved creatinine to 1.9. Suspicious for prerenal/hypotension related .ultrasound of the abdomen shows no evidence of stones or obstructive uropathy. Bladder scan shows no high residuals.
-Continue hold diuretic
-Normalized HCO3
Continue to follow BMP
#Acute hyperkalemia in setting of FER
K 6
-s/p Lokelma, IV insulin, IV dextrose
-Normalized
#[id number]
-Status post ablation March 2020
#Permanent pacemaker
-With FER and prolonged QTc Tikosyn was on hold. QTc improved. Improving FER. Reassume Tikosyn per cardiology.
-cw metoprolol tartrate 50 mg every 8 hours with parameters
-CBC cardiology following
-Hold Eliquis and aspirin(patient took this a.m. 03/17/2024)
-No clinical evidence of heart failure. Weight has been stable at 164 lower than prior recordings.
# COPD per patient-no acute exacerbation
-Today with intermittent wheeze. Add nebulizers as needed.
-Continue albuterol every 6 as needed wheezing
-Continue Breo Ellipta/Incruse Ellipta
# Acute hypoxic respiratory insufficiency-patient is requiring oxygen though he is asymptomatic.
-Chest x-ray without evidence of pneumonia, heart failure, no evidence of acute cardiopulmonary disease.
-Check pulse ox on room air
-Continue with oxygen support for now and wean as able.
#AVR, MVR replacement replacement
#Pericardial effusion with pericardiocentesis 08/06/2019 status post AVR/MVR/maze 08/06/2019
#Hypothyroidism
-Continue levothyroxine 25 mcg p.o. daily
#Gastritis/duodenitis December 2004
GI bleed Hx due to perforated gastric ulcer December 2004
-Patient reports was treated with Protonix
#CAD cardiac stent December 2004
-Hold aspirin 81 mg daily due to current anemia/bleeding
Other PMH:
Hepatitis A Hx
Femur fracture September 30, 2022
DVT prophylaxis
SCDs
Full code
Patient with acceptable risk for colonoscopy with formal injection from cardiovascular standpoint.
Okay to proceed with colonoscopy in formalin procedure from medical standpoint. Closely follow-up on oxygen periprocedure.
Discussed with colorectal surgery today
Discussed with RN
Total time spent on today's encounter was 52 minutes which included time spent in counseling the patient/family regarding diagnosis and treatment plan as listed above, goals of care, and symptom management. Case was discussed with nursing staff,
specialists, and care coordinators/case management. All labs and imaging personally reviewed by me. Remainder the time spent in detailed review of previous records, lab data, imaging, and other medical provider documentation.
Anticipated Discharge: > 48 hours
Subjective/Interval History
-
Date of Service: March 19, 2024
Patient states he feels better. Voicing no specific complaints.
No bowel movement today so far. 2 small bloody bowel movements yesterday afternoon. Denies any abdominal pain. No nausea or vomiting.
He has got a chronic cough from his COPD nothing different currently. Denies any shortness of breath. No chest pain. Does not use oxygen at home.
Objective Data
-
Labs:
Laboratory Results
03/19/24
05:28
WBC 5.5
Hgb 8.3 L
Hct 26.4 L
Plt Count 164
Sodium 144
Potassium 4.5
Chloride 112 H
Carbon Dioxide 23
BUN 56 H
Creatinine 1.9 H
Glucose 85
Calcium 8.0 L
Total Bilirubin 1.0
AST 60 H
ALT 38
Alkaline Phosphatase 79
Vital Signs:
Vital Signs
Temp Pulse Resp BP Pulse Ox
97.9 F 86 22 123/62 100
03/19/24 05:21 03/19/24 06:00 03/19/24 06:00 03/19/24 06:00 03/19/24 06:00
I&O
03/18/24 03/19/24 03/20/24
06:59 06:59 06:59
Intake Total 1000 / 1000 240 / 240
Output Total 250 / 250 550 / 550
Balance 750 / 750 -310 / -310
Review of Systems
-
Constitutional: Denies Fever or Chills
EENT: Denies Sore Throat
Neuro: Denies Dizzy
Physical Exam
-
General: No Apparent Distress
Respiratory: Wheezes (Few occasional wheeze bilaterally) and Non Labored Respirations; Negative Crackles or Accessory Resp Muscle Use
Cardiac: Regular Rhythm (A paced rhythm) and S1/S2; Negative JVD or Tachycardic
GI: Soft, Nontender, Nondistended and Normal Bowel Sounds
Musculoskeletal: No Edema
Neuro: AO x 3
Psych: Calm; Negative Confused
Data Reviewed
-
Labs: Labs Reviewed by me
[2024-03-19] MEDS: LOPRESSOR 50 MG PO ×2 (09:17→16:25)
--- NOTE | 2024-03-19 10:34 | PTCARENOTE ---
Pox 94/ 3L MD req check on RAIR - removed pox fluctulates 86%-95%. Report given to Fanny in OR- placed back on 2L NC for procedure. NPO since MN x few ice chips/ am med. PO Lopressor given with sip of water. Voided earlier- unable to at this
time. CHG bathed and sheets changed. SCD intact.
Telemetry events relayed via TT to Dr. Fung and Dr. Wright.
--- NOTE | 2024-03-19 12:31 | W.IMMPOSTOP ---
Addendum entered and electronically signed by Maxime Trinidad MD 03/19/24 13:00:
Patient's updated via phone conversation.
Original Note:
Surgical Immed Post Op Note
-
Primary Surgeon: Bg Trinidad MD
Assisting Surgeon: none
Pre-op Diagnosis: radiation proctitis
Post-op Diagnosis: same
Procedure Performed: 1) anorectal exam under anesthesia 2) formalin application for radiation proctitis
Anesthesia Type: MAC plus local
Specimen / Cultures: none
Estimated Blood Loss: 10 cc
Complications: no immedate
Operative Findings: distal anterior rectal erythema due to radiation proctitis
Will send back to IMU.
Will order fulls for diet.
--- NOTE | 2024-03-19 12:33 | W.PN.CRS1 ---
Today's Communication / Plan
-
N.p.o. for possible OR later today
Assessment/Plan
-
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
Hemoglobin 8.3 from 8.9. Creatinine 1.9 from 2.8. Vitals normal.
Plan:
-Will plan for formalin treatment in the OR today. Discussed with the hospitalist.
-Continue to hold Eliquis
-Remain n.p.o.
-Voicemail left on 's answering machine by Dr. Trinidad last night
Subjective Data
Subjective Data
Date of Service: March 19, 2024
Patient states he had no further bleeding. He denies any pain. He overall feels 'much better'.
Objective Data
-
Vital Signs
Temp Pulse Resp BP Pulse Ox
98.1 F 71 19 113/54 97
03/19/24 07:55 03/19/24 10:30 03/19/24 10:30 03/19/24 10:30 03/19/24 09:28
Intake & Output
03/18/24 03/19/24 03/20/24
06:59 06:59 06:59
Intake Total 1000 / 1000 240 / 240
Output Total 250 / 250 550 / 550 200 / 200
Balance 750 / 750 -310 / -310 -200 / -200
Intake:
Oral fluids 240 / 240
Blood products 250 / 250
Blood Product Amount Infused ( 750 / 750
mL)
Packed Rbc Leukoreduced Unit 250 / 250
[id number]
Packed Rbc Leukoreduced Unit 250 / 250
[id number]
Packed Rbc Leukoreduced Unit 250 / 250
[id number]
Output:
Urine, Voided 250 / 250 550 / 550 200 / 200
Lab Results
03/19/24 05:28
03/19/24 05:28
Physical Exam
-
General: No Acute Distress and AOx3
Abdomen: Soft, Non Distended and Non Tender
--- NOTE | 2024-03-19 13:19 | W.PN.CD ---
Today's Communication / Plan
-
plan for formalin treatment in the OR today with colorectal surgery
-plan for restarting eliquis to be determined based on outcome in OR, and Hgb trend
Impression / Plan
-
Severe anemia, pprnu-lm-syxocxp:
-hgb 5.5, now improved s/p 3 units PRBC's; trend Hgb
-related to rectal bleeding in setting of radiation proctitis
-eliquis held
-plan for formalin treatment in the OR today with colorectal surgery
-plan for restarting eliquis to be determined based on outcome in OR, and Hgb trend
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
-no CP or SOB
-ASA stopped; plan will be to resume eliquis only
AFIB, paroxysmal: hx ablation
-stable in SR
-Tikosyn reduced to 125mcg q12hr based on renal function
-trend Cr
-continue metoprolol
-Eliquis held for severe anemia, rectal bleeding. [id number] score is 4 for age, CAD, CHF. Plan as above.
Hyperkalemia:
-resolved
FER:
-improving
hx AVR, MVR:
-stable on most recent echo
-monitor over time
Pacemaker:
-stable on OP checks
HFpEF:
-chronic
-does not appear overloaded to assessment
-monitor volume
COPD:
-he is wheezing and coarse to assessment
-getting duonebs
-remains on 4L NC
-consider CXR if continues to need O2
Physical Exam
Vital Signs/Labs
Vital Signs
Temp Pulse Resp BP Pulse Ox
97.8 F 64 25 118/50 88
03/19/24 12:30 03/19/24 13:00 03/19/24 13:00 03/19/24 13:00 03/19/24 12:45
03/18/24 03/19/24 03/20/24
06:59 06:59 06:59
Actual Weight 74.4 kg 74.7 kg
03/19/24 05:28
03/19/24 05:28
APTT 41.5 Sec (23.4-35.0) H 03/17/24 16:30
Physical Exam
Constitutional: No acute distress
EENT: Moist mucous membranes
Cardiovascular: Rhythm & rate is regular, Pedal edema is absent, JVD pressure is normal and Systolic murmur present
Respiratory: Respiratory effort normal and Lungs clear to auscul.
Neuro/Psych: AO x 3
Data Reviewed
-
Date of Service: March 19, 2024
EKG: Other (tele: sinus, brief SVT)
Labs: Labs Reviewed by me
--- NOTE | 2024-03-19 17:11 | PTCARENOTE ---
Returned from PACU on 2L NC, no complaints VS noted. Difficult to get pox reading tried multiple devices - raised O2 to 3L and then read 99%- turned to 2L reading 94% Will leave there for now. Voided in urinal. Full liquid diet ordered.
--- NOTE | 2024-03-19 17:21 | PN.CDI ---
CDI
- -
CDI:
Physician Documentation Request
Admit Date: 03/17/24 19:50
Dear Doctor Kenton,
Please review the following and provide your response in the progress notes.
Clinical Indicators:
Pt admitted with rectal bleeding 2/2 Radiation Proctitis /Acute on chronic anemia /Hemorrhagic shock
There is potentially conflicting in the record regarding the type of afib.
Cardiology consult, ' persistent AFIB/flutter s/p ablation on Eliquis and Tikosyn..'
Progress note 03/18 & 03/19, '#M-kfv-nuawxhnsfXqqmxq post ablation March 2020 Permanent pacemaker..-Hold Eliquis and aspirin(patient took this a.m. 03/17/2024)....'
If possible, please provide further specificity regarding atrial fibrillation, such as:
Persistent atrial fibrillation - episodes of continuous AF that last more than 7 days and do not self-terminate
Permanent atrial fibrillation - when a decision has been made to accept the presence of AF and there is no further attempt to restore or maintain sinus rhythm
Other - please specify
Use of terms such as suspected, likely, concern for, or probable (associated with a specific diagnosis that is being evaluated, monitored, or treated as if it exists) are acceptable and can be coded in the inpatient setting, when documented at the
time of discharge.
Thank you,
Erika Simmons RN
CDI Specialist
[place] [facility]
Please use your independent medical judgment in providing your response.
[2024-03-19] MEDS: TIKOSYN 125 MCG PO (20:41)
[2024-03-20] VITALS (12 sets, daily range): BP systolic 106–125; BP diastolic 45–93; PULSE 76; O2SAT 100; BMI 23.1
[2024-03-20] MEDS: SYNTHROID 25 MCG PO (04:55)
[2024-03-20 05:14] LABS: % Immature Granulocytes 0.5 % (0-0.5); % Lymphocytes 2.6 % (20.5-51.1); % Monocytes 8.4 % (1.7-9.3); % Neutrophils 88.5 % (42.2-75.2); Absolute Lymphocytes 0.2 10^3/uL (1.2-3.4); Absolute Monocytes 0.5 10^3/uL (0.1-0.6); Absolute Neutrophils 5.1 10^3/uL (1.4-6.5); Hematocrit 29.1 % (39.0-52.0); Mean Corp Hgb Conc. 30.9 g/dL (33.0-37.0); Mean Corpuscular Hgb 28.7 pg (27.0-31.0); Mean Corpuscular Volume 92.7 fL (80.0-94.0); Mean Platelet Volume 9.2 fL (7.4-10.4); Nucleated Red Blood Cells % 0.7 % (-); Platelet Count 154 10^3/uL (130-400); Red Blood Cell Count 3.14 10^6/uL (4.70-6.10); Red Cell Dist. Width 16.3 % (11.5-14.5); White Blood Cell Count 5.7 10^3/uL (4.8-10.8)
--- NOTE | 2024-03-20 05:34 | PTCARENOTE ---
Received pt at change of shift. AAOx3. No evidence of melena. BP stable throughout shift; SBP remains >100. Abd distended but non tender. flatulence present; no BM. 98% on 2L NC. Resting in bed with call gifford in reach.
[2024-03-20 05:43] LABS: ALT (SGPT) 36 U/L (0-50); AST (SGOT) 51 U/L (17-59); Albumin 3.4 g/dl (3.5-5.0); Alkaline Phosphatase 88 U/L (38-126); Blood Urea Nitrogen 43 mg/dl (9-20); Calcium 8.3 mg/dl (8.4-10.2); Carbon Dioxide 24 mmol/L (22-30); Chloride 111 mmol/L (98-107); Estimated Creatinine Clearance 45 ml/min; Glucose 123 mg/dl (70-99); Potassium 5.6 mmol/L (3.5-5.1); Sodium 143 mmol/L (135-145); Total Bilirubin 0.7 mg/dl (0.2-1.3); eGFR 54.17
--- NOTE | 2024-03-20 06:08 | PTCARENOTE ---
Potassium resulted at 5.6. Notified JORGE. Hermilakelma ordered. Repeat potassium to be drawn 4 hours after administration of Lokelma.
[2024-03-20] MEDS: LOKELMA 10 GRAM PO (06:23)
[2024-03-20] MEDS: LOPRESSOR 50 MG PO (08:05)
[2024-03-20] MEDS: TIKOSYN 125 MCG PO ×2 (08:05→19:56)
[2024-03-20] MEDS: NON-FORMULARY ITEM 1 MCG INH (08:34)
[2024-03-20] MEDS: NON-FORMULARY ITEM 1 UNIT INH (08:35)
--- NOTE | 2024-03-20 08:47 | W.PN.HOSP.TC ---
Today's Communication/Plan
-
Transferred to telemetry
Advance diet per surgery
As needed Benadryl
Assessment / Plan
Assessment / Plan
# Acute recurrent rectal bleeding secondary to radiation proctitis-hemodynamically stable
#Prostate cancer August 2022 [facility]/radiation
-Patient says he has been having recurrent rectal bleeding since August last year. Patient required transfusion support in the past 2.
-Admitting Hgb 5.5
-Transfused 2 units PRBC. H&H stable since transfusion.
-Status post formalin application 03/19
-No recurrent rectal bleeding
-Patient stopped Eliquis on 03/15/2024
-Patient on combination of anticoagulant and aspirin-aspirin is on hold-cardiology do not see the need of dual agents of aspirin and Eliquis. Moving forward only Eliquis is recommended.
-Advance diet per surgery
#Acute hypotension secondary to hemorrhagic shock
#Acute on chronic blood loss anemia
#Essential HTN
#Left renal artery stenosis Hx
Improved hemodynamics status post transfusion support. Blood pressure remained stable.
-Hold Lasix 40 mg daily; continue metoprolol tartrate 50 mg every 8 hours with parameters
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
Creat 2.6/bun 68
Resolved. Creatinine 1.3. Suspicious for prerenal/hypotension related .ultrasound of the abdomen shows no evidence of stones or obstructive uropathy. Bladder scan shows no high residuals.
-Continue hold diuretic
-Normalized HCO3
Continue to follow BMP
#Acute hyperkalemia in setting of FER
K 6
-s/p Lokelma, IV insulin, IV dextrose
-Normalized
#A-dkc-aozzklmbd
-Status post ablation March 2020
#Permanent pacemaker
-With FER and prolonged QTc Tikosyn was on hold but now reintroduced at lower dose. QTc improved. Improving FER.
-cw metoprolol tartrate 50 mg every 8 hours with parameters
-CBC cardiology following
-Hold Eliquis and aspirin(patient took this a.m. 03/17/2024)
-No clinical evidence of heart failure. Weight has been stable at 164 lower than prior recordings.
# COPD per patient-no acute exacerbation
-Today with intermittent wheeze. Add nebulizers as needed.
-Continue albuterol every 6 as needed wheezing
-Continue Breo Ellipta/Incruse Ellipta
# Acute hypoxic respiratory insufficiency-patient is requiring oxygen though he is asymptomatic.
-Chest x-ray without evidence of pneumonia, heart failure, no evidence of acute cardiopulmonary disease.
-Resolved. Currently on room air
# Itching for few days without any hives-unclear if this is a delayed mild allergic reaction to transfusion products. Check ferritin. Bilirubin normal now. Try as needed antihistamines for now and follow.
#AVR, MVR replacement replacement
#Pericardial effusion with pericardiocentesis 08/06/2019 status post AVR/MVR/maze 08/06/2019
#Hypothyroidism
-Continue levothyroxine 25 mcg p.o. daily
#Gastritis/duodenitis December 2004
GI bleed Hx due to perforated gastric ulcer December 2004
-Patient reports was treated with Protonix
#CAD cardiac stent December 2004
-Hold aspirin 81 mg daily due to current anemia/bleeding
Other PMH:
Hepatitis A Hx
Femur fracture September 30, 2022
DVT prophylaxis
SCDs
Full code
Transferred to telemetry
Anticipated Discharge: 24 - 48 hours
Subjective/Interval History
-
Date of Service: March 20, 2024
No rectal bleeding not had any bowel movement since yesterday. Tolerating clears.
Off of oxygen this morning. Denies any shortness of breath or chest pain. No palpitations.
The patient has noticed in the last week or so generalized itching. It was present even before coming into the hospital. He is wondering if it is transfusion related as he had many since August.
Objective Data
-
Labs:
Laboratory Results
03/20/24 03/20/24
04:51 10:30
WBC 5.7
Hgb 9.0 L
Hct 29.1 L
Plt Count 154
Sodium 143
Potassium 5.6 H Pending
Chloride 111 H
Carbon Dioxide 24
BUN 43 H
Creatinine 1.3
Glucose 123 H
Calcium 8.3 L
Total Bilirubin 0.7
AST 51
ALT 36
Alkaline Phosphatase 88
Vital Signs:
Vital Signs
Temp Pulse Resp BP Pulse Ox
98.2 F 94 24 125/65 99
03/20/24 04:50 03/20/24 08:05 03/20/24 06:00 03/20/24 08:05 03/20/24 00:09
I&O
03/19/24 03/20/24 03/21/24
06:59 06:59 06:59
Intake Total 240 / 240 150 / 150
Output Total 550 / 550 1200 / 1200
Balance -310 / -310 -1050 / -1050
Review of Systems
-
Constitutional: Denies Fever or Chills
Respiratory: Denies Trouble Breathing
Cardiac: Denies Chest Pain
Abdomen/GI: Denies Abdominal Pain, Nausea or Vomiting
Skin: Reports Itching
Neuro: Denies Dizzy
Physical Exam
-
General: Comfortable
HEENT: Moist Mucous Membranes
Respiratory: Clear to Auscultation and Non Labored Respirations; Negative Accessory Resp Muscle Use
Cardiac: Regular Rhythm (A paced) and S1/S2
GI: Soft and Nontender
Skin: Other (No hives)
Neuro: AO x 3
Psych: Calm
Data Reviewed
-
Labs: Labs Reviewed by me
[2024-03-20 09:16] LABS: Iron 29 ug/dl (49-181)
[2024-03-20 09:25] LABS: Percent Saturation 7 % (20-50); Total Iron Binding Capacity 395 ug/dl (261-462)
[2024-03-20] MEDS: BENADRYL 25 MG PO ×3 (10:40→23:46)
[2024-03-20 10:52] LABS: Potassium 4.7 mmol/L (3.5-5.1)
--- NOTE | 2024-03-20 11:42 | W.PN.CD ---
Today's Communication / Plan
-
feels well . No active bleeding.
monitor Hb
patient will reamin off ASA
Restart Eliquis when Ok with colorectal surgery
Impression / Plan
-
Severe anemia, psher-cc-tatpxtb:
-hgb 5.5, now improved s/p 3 units PRBC's; hemoglobin up to 9.0 on 03/20/2024. Continue to monitor
-related to rectal bleeding in setting of radiation proctitis
-eliquis held
- Formalin application for radiation proctitis.in the operating room on 03/19/2024
.
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
-no CP or SOB
-ASA stopped; resume Eliquis when okay from GI/colorectal standpoint
.
AFIB, paroxysmal: hx ablation
-stable in SR
-Tikosyn reduced to 125mcg q12hr based on renal function
-trend Cr
-continue metoprolol
-Eliquis held for severe anemia, rectal bleeding. [id number] score is 4 for age, CAD, CHF. Plan as above.
FER:
-Improved 2.8 down to 1.3
hx AVR, MVR:
-stable on most recent echo
-monitor over time
Pacemaker: Stable
-
HFpEF: Chronic. Stable continue to monitor volume status
COPD:
-getting duonebs
-remains on 4L NC
-consider CXR if continues to need O2
Physical Exam
Vital Signs/Labs
Vital Signs
Temp Pulse Resp BP Pulse Ox
97.7 F 94 24 125/65 99
03/20/24 07:20 03/20/24 08:05 03/20/24 06:00 03/20/24 08:05 03/20/24 00:09
03/19/24 03/20/2403/21/25
06:59 06:59 06:59
Actual Weight 74.7 kg 75.1 kg
03/20/24 04:51
03/20/24 10:31
APTT 41.5 Sec (23.4-35.0) H 03/17/24 16:30
Physical Exam
Constitutional: No acute distress
Cardiovascular: Rhythm & rate is regular
Respiratory: Crackles Absent and Rhonchi Absent
GI: Soft
Neuro/Psych: Alert
Data Reviewed
-
Date of Service: March 20, 2024
Medical Decision Making: Reviewed Test Results
Echo: Report Reviewed by me
X-Ray/CT/US/MRI/NUC/PET: Report Reviewed by me
Medical Tests (PFT, Pathology etc): Report Reviewed by me
Labs: Labs Reviewed by me
[2024-03-20 12:31] LABS: Ferritin 21.4 ng/ml (17.9-464.0)
--- NOTE | 2024-03-20 13:49 | PTCARENOTE ---
Assumed care of Pt at shift change. Pt resting comfortably in bed; 99% on 2L O2 - weaned off to RA with SpO2 ~ 97%. Denies pain; No N/V/D; + appetite on full liquid diet - upgraded to Cholesterol lowering diet by surgical. Pt downgraded to tele -
report given to 2 Raffi RN, transferred to rm [id number]
--- NOTE | 2024-03-20 14:47 | W.PN.GS2 ---
Addendum entered and electronically signed by Antwon Mcdonald MD 03/20/24 15:00:
Patient seen in follow-up with surgical FERRY OPERATOR. Agree with documented progress note.
No further bloody stools or passage of blood since yesterday's procedure
Offers no additional complaints. at bedside.
AFVSS
ABD: Soft, nondistended, nontender.
A/P: Postop day #1 status post EUA with formalin application for radiation proctitis with resultant bleeding
Advance diet as tolerated
Continue to hold therapeutic anticoagulation for 72 hours post procedure
Original Note:
Today's Communication / Plan
-
Advance diet
Assessment / Plan
-
83 yo male with h/o radiation proctitis presenting with active bleeding and acute blood loss anemia now PPD #1 rectal exam under anesthesia with formalin application
AFVSS
H/H stable today
--Continue with Eliquis on hold
--Ok to advance to solid diet
Subjective Data
-
Date of Service: March 20, 2024
Patient seen and examined at bedside with Dr. Mcdonald. Denies n/v. Denies pain. Passing flatus. No stools since procedure yesterday. Denies pain
Objective Data
-
Intake and Output
03/19/24 03/20/24 03/21/24
06:59 06:59 06:59
Intake Total 240 / 240 150 / 150
Output Total 550 / 550 1200 / 1200
Balance -310 / -310 -1050 / -1050
Intake:
Oral fluids 240 / 240
IV fluids (Total) 150 / 150
Normosol 150 / 150
Output:
Urine, Voided 550 / 550 1200 / 1200
Vital Signs
Temp Pulse Resp BP Pulse Ox
97.5 F 68 18 122/65 96
03/20/24 13:40 03/20/24 13:40 03/20/24 13:40 03/20/24 13:40 03/20/24 13:40
Lab Results
03/20/24 04:51
03/20/24 10:31
Calcium 8.3 mg/dl (8.4-10.2) L 03/20/24 04:51
Total Bilirubin 0.7 mg/dl (0.2-1.3) 03/20/24 04:51
AST 51 U/L (17-59) 03/20/24 04:51
ALT 36 U/L (0-50) 03/20/24 04:51
Alkaline Phosphatase 88 U/L (38-126) 03/20/24 04:51
Total Protein 6.0 g/dl (6.3-8.2) L 03/20/24 04:51
Albumin 3.4 g/dl (3.5-5.0) L 03/20/24 04:51
Physical Exam
-
NAD
ABD soft, nt, nd
Patient has a mendez catheter: No
[2024-03-20] MEDS: LOPRESSOR PO (15:27)
[2024-03-21] VITALS (8 sets, daily range): BP systolic 99–123; BP diastolic 39–64; BMI 23.2
[2024-03-21] MEDS: LOPRESSOR PO ×3 (00:36→16:21)
--- NOTE | 2024-03-21 04:31 | PTCARENOTE ---
04:31 SBAR given to LEGISLATIVE ADVOCATE, last Bloody BM 03/18 in IMU, pt asa and eliquis are on HOLD and his lopressor held due to b/p 101/45 his is A-paced and was NSR however now he is A-fib irregular and tachy at times , can I give him his Tikosyn 125mg early?,
it's due at 8am. LEGISLATIVE ADVOCATE orders may give Tikosyn now.
[2024-03-21] MEDS: BENADRYL 25 MG PO ×2 (04:38→20:46)
[2024-03-21] MEDS: TIKOSYN 125 MCG PO ×2 (04:38→19:28)
[2024-03-21] MEDS: SYNTHROID 25 MCG PO (05:45)
[2024-03-21 06:43] LABS: % Eosinophils 1.5 % (0-6); % Immature Granulocytes 0.3 % (0-0.5); % Lymphocytes 4.9 % (20.5-51.1); % Monocytes 14.3 % (1.7-9.3); Absolute Eosinophils 0.1 10^3/uL (0-0.7); Absolute Lymphocytes 0.3 10^3/uL (1.2-3.4); Absolute Monocytes 0.9 10^3/uL (0.1-0.6); Absolute Neutrophils 5.1 10^3/uL (1.4-6.5); Hematocrit 26.2 % (39.0-52.0); Hemoglobin 8.3 g/dL (13.0-18.0); Mean Corp Hgb Conc. 31.7 g/dL (33.0-37.0); Mean Corpuscular Hgb 29.1 pg (27.0-31.0); Mean Corpuscular Volume 91.9 fL (80.0-94.0); Mean Platelet Volume 9.8 fL (7.4-10.4); Nucleated Red Blood Cells % 0.5 % (-); Platelet Count 142 10^3/uL (130-400); Red Blood Cell Count 2.85 10^6/uL (4.70-6.10); Red Cell Dist. Width 16.2 % (11.5-14.5); White Blood Cell Count 6.5 10^3/uL (4.8-10.8)
[2024-03-21 06:57] LABS: ALT (SGPT) 30 U/L (0-50); AST (SGOT) 39 U/L (17-59); Albumin 3.1 g/dl (3.5-5.0); Alkaline Phosphatase 79 U/L (38-126); Blood Urea Nitrogen 35 mg/dl (9-20); Calcium 7.8 mg/dl (8.4-10.2); Carbon Dioxide 25 mmol/L (22-30); Chloride 106 mmol/L (98-107); Estimated Creatinine Clearance 45 ml/min; Glucose 96 mg/dl (70-99); Potassium 4.4 mmol/L (3.5-5.1); Sodium 138 mmol/L (135-145); Total Bilirubin 0.8 mg/dl (0.2-1.3); Total Protein 5.4 g/dl (6.3-8.2); eGFR 54.17
[2024-03-21] MEDS: NON-FORMULARY ITEM 1 MCG INH (07:28)
[2024-03-21] MEDS: NON-FORMULARY ITEM 1 UNIT INH (07:28)
[2024-03-21] MEDS: LOPRESSOR 50 MG PO ×2 (09:53→23:48)
[2024-03-21] MEDS: ATARAX 25 MG PO (10:08)
--- NOTE | 2024-03-21 10:56 | W.PN.HOSP.TC ---
Today's Communication/Plan
-
Follow H&H
Consider increasing Tikosyn dose and following telemetry
PT eval
DC planning
Assessment / Plan
Assessment / Plan
# Acute recurrent rectal bleeding secondary to radiation proctitis-hemodynamically stable
#Prostate cancer August 2022 [facility]/radiation
-Patient says he has been having recurrent rectal bleeding since August last year. Patient required transfusion support in the past 2.
-Admitting Hgb 5.5
-Transfused 2 units PRBC. H&H stable since transfusion.
-Status post formalin application 03/19
-No recurrent rectal bleeding
-Patient stopped Eliquis on 03/15/2024
-Patient on combination of anticoagulant and aspirin-aspirin is on hold-cardiology do not see the need of dual agents of aspirin and Eliquis. Moving forward only Eliquis is recommended.
-Advance diet per surgery
#Acute hypotension secondary to hemorrhagic shock
#Acute on chronic blood loss anemia
#Essential HTN
#Left renal artery stenosis Hx
Improved hemodynamics status post transfusion support. Blood pressure remained stable.
-Hold Lasix 40 mg daily; continue metoprolol tartrate 50 mg every 8 hours with parameters
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
Creat 2.6/bun 68
Resolved. Creatinine 1.3. Suspicious for prerenal/hypotension related .ultrasound of the abdomen shows no evidence of stones or obstructive uropathy. Bladder scan shows no high residuals.
-Continue hold diuretic
-Normalized HCO3
Continue to follow BMP
#Acute hyperkalemia in setting of FER
K 6
-s/p Lokelma, IV insulin, IV dextrose
-Normalized
#T-qcx-dxvrzwozm
-Status post ablation March 2020
#Permanent pacemaker
-With FER and prolonged QTc Tikosyn was on hold but now reintroduced at lower dose. QTc improved. Improving FER. Consider increasing Tikosyn dose as HR is creeping up and renal function is improved and stable.
-cw metoprolol tartrate 50 mg every 8 hours with parameters
-CBC cardiology following
-Hold Eliquis and aspirin(patient took this a.m. 03/17/2024) .Resume Eliquis when ok from surgical standpoint.
-No clinical evidence of heart failure. Weight has been stable at 164 lower than prior recordings.
# COPD per patient-no acute exacerbation
-Today with intermittent wheeze. Add nebulizers as needed.
-Continue albuterol every 6 as needed wheezing
-Continue Breo Ellipta/Incruse Ellipta
# Acute hypoxic respiratory insufficiency-patient is requiring oxygen though he is asymptomatic.
-Chest x-ray without evidence of pneumonia, heart failure, no evidence of acute cardiopulmonary disease.
-Resolved. Currently on room air
# Itching for few days without any hives-unclear if this is a delayed mild allergic reaction to transfusion products. Check ferritin. Bilirubin normal now. Try as needed antihistamines for now and follow.Add Hydroxyzine.
#AVR, MVR replacement replacement
#Pericardial effusion with pericardiocentesis 08/06/2019 status post AVR/MVR/maze 08/06/2019
#Hypothyroidism
-Continue levothyroxine 25 mcg p.o. daily
#Gastritis/duodenitis December 2004
GI bleed Hx due to perforated gastric ulcer December 2004
-Patient reports was treated with Protonix
#CAD cardiac stent December 2004
-Hold aspirin 81 mg daily due to current anemia/bleeding
Other PMH:
Hepatitis A Hx
Femur fracture September 30, 2022
DVT prophylaxis
SCDs
Full code
PT eval
DC planning
Anticipated Discharge: 24 - 48 hours
Subjective/Interval History
-
Date of Service: March 21, 2024
No further rectal bleeding. Denies any abdominal pain. Tolerating diet.
Objective Data
-
Labs:
Laboratory Results
03/21/24
04:51
WBC 6.5
Hgb 8.3 L
Hct 26.2 L
Plt Count 142
Sodium 138
Potassium 4.4
Chloride 106
Carbon Dioxide 25
BUN 35 H
Creatinine 1.3
Glucose 96
Calcium 7.8 L
Total Bilirubin 0.8
AST 39
ALT 30
Alkaline Phosphatase 79
Vital Signs:
Vital Signs
Temp Pulse Resp BP Pulse Ox
97.9 F 112 18 120/64 97
03/21/24 07:25 03/21/24 09:53 03/21/24 07:34 03/21/24 09:53 03/21/24 07:34
I&O
03/20/24 03/21/24 03/22/24
06:59 06:59 06:59
Intake Total 150 / 150 1160 / 1160
Output Total 1200 / 1200 675 / 675
Balance -1050 / -1050 485 / 485
Review of Systems
-
Constitutional: Denies Fever
Respiratory: Denies Trouble Breathing
Cardiac: Denies Chest Pain or Palpitations
Neuro: Denies Dizzy
Physical Exam
-
General: No Apparent Distress
HEENT: Moist Mucous Membranes
Respiratory: Clear to Auscultation and Non Labored Respirations; Negative Accessory Resp Muscle Use
Cardiac: S1/S2, Irregular Rhythm and Tachycardic
GI: Soft and Nontender
Neuro: AO x 3
Data Reviewed
-
Labs: Labs Reviewed by me
--- NOTE | 2024-03-21 22:27 | PTCARENOTE ---
pt had medium soft BM with small amount of blood observed in toilet, he had a smear on pad no visible blood however heme test positive , no abd pain, vs stable 106/52 hr 97 in A-fib on tele, hgb 8.3 down from 9 yesterday . pt had bleeding earlier
in his BM today per nursing report . HISTOLOGY TECH made aware.
--- NOTE | 2024-03-21 23:02 | PTCARENOTE ---
Inking Machine Tender with new orders for q6hr H&H for bloody BMs.
--- NOTE | 2024-03-21 23:08 | W.PN.UPDATE ---
Update Note
Progress Note Update
Per nursing staff, patient had 2 bm with a small amount of blood and another a small amount of blood noted earlier by the day team.
Vital signs within normal limits. h&h ordered, hgb currently 8.8
Will monitor h&h q 6hrs, transfuse as needed and update surgery team.
[2024-03-21 23:24] LABS: Hematocrit 27.7 % (39.0-52.0); Hemoglobin 8.8 g/dL (13.0-18.0)
[2024-03-21 23:35] LABS: Magnesium 2.4 mg/dl (1.6-2.3)
[2024-03-22] VITALS (7 sets, daily range): BP systolic 100–121; BP diastolic 51–67; BMI 23.8
--- NOTE | 2024-03-22 02:02 | PTCARENOTE ---
2118 Qasim Jacobs dx: rectal formalin application pt had medium soft BM with small amount of blood observed in toilet, he had a smear on pad no visible blood however heme test positive , no abd pain, vs stable 106/52 hr 97 in A-fib on tele, hgb
8.3 down from 9 yesterday . Diagnostic Assistant ordered H&H- results 8.8 and Mag-2.4 first bm (22;30) Pt had 2 soft formed brown BM this evening with casey blood noted in toilet and reported a small and med BM during day shift. pt denies abd or rectal discomfort
,last b/p 1;30am 120/58 hr 77 A-fib on tele last BM (01:30) pt is stable I just wanted to keep you informed, SBAR sent to Jh Hardwick
[2024-03-22] MEDS: SYNTHROID 25 MCG PO (05:31)
[2024-03-22] MEDS: NON-FORMULARY ITEM 1 UNIT INH (07:24)
[2024-03-22] MEDS: NON-FORMULARY ITEM 1 MCG INH (07:24)
[2024-03-22 07:31] LABS: Hematocrit 27.9 % (39.0-52.0); Hemoglobin 8.5 g/dL (13.0-18.0); Mean Corp Hgb Conc. 30.5 g/dL (33.0-37.0); Mean Corpuscular Hgb 28.6 pg (27.0-31.0); Mean Corpuscular Volume 93.9 fL (80.0-94.0); Mean Platelet Volume 9.5 fL (7.4-10.4); Platelet Count 146 10^3/uL (130-400); Red Blood Cell Count 2.97 10^6/uL (4.70-6.10); Red Cell Dist. Width 16.5 % (11.5-14.5); White Blood Cell Count 6.6 10^3/uL (4.8-10.8)
[2024-03-22 07:50] LABS: Blood Urea Nitrogen 26 mg/dl (9-20); Calcium 7.5 mg/dl (8.4-10.2); Carbon Dioxide 26 mmol/L (22-30); Chloride 105 mmol/L (98-107); Estimated Creatinine Clearance 59 ml/min; Glucose 83 mg/dl (70-99); Potassium 4.3 mmol/L (3.5-5.1); Sodium 136 mmol/L (135-145); eGFR > 60.00
[2024-03-22] MEDS: LOPRESSOR 50 MG PO ×2 (08:44→23:02)
[2024-03-22] MEDS: TIKOSYN 125 MCG PO (08:45)
--- NOTE | 2024-03-22 08:45 | W.PN.CRS1 ---
Today's Communication / Plan
-
As below
Assessment/Plan
-
83-year-old male with PMH of A-fib (on Eliquis, last dose was 2 days ago), asthma, HTN, left renal artery stenosis, hypothyroidism, GERD, CAD (s/p stent), prostate cancer s/p RT who has been having ongoing rectal bleeding requiring outpatient
transfusions. He was scheduled for an elective formalin application by Dr. Trinidad today for radiation proctitis. He states that 2 to 3 days ago, he had more rectal bleeding associated with passing of clots. He stopped his Eliquis. However, he
was having dyspnea on exertion as well as dizziness. He was instructed to go to the ED. His hemoglobin was 5.5. He was admitted and received pRBCs x 3. He responded appropriately and has not had any blood per rectum since 2 days ago when he
stopped the Eliquis. He also states that he has been urinating less than normal.
POD 3 formalin application
AFVSS
WBC 6.6, Hb 8.5 from 8.8 from 8.3, Cr 1.0
�Radiation proctitis leading to symptomatic anemia; s/p formalin application
�Still with some minor bleeding; overall improved and Hb stable
�Continue holding AC and trending CBC every 8-12 hours; transfuse as needed
� FER, now resolved
� Okay for regular diet, make n.p.o. at midnight in case bleeding continues/worsens
�Continue home meds
� Care per hospitalist
Subjective Data
Subjective Data
Date of Service: March 22, 2024
Yesterday, patient had 2 BMs with some blood and then 1 episode of just blood. But overall, patient says that it is much better overall from before the procedure.
Denies any pain
Denies nausea/vomiting. Tolerating diet.
+voiding
Pt is OOB.
Objective Data
-
Vital Signs
Temp Pulse Resp BP Pulse Ox
97.6 F 88 16 110/60 93
03/22/24 07:55 03/22/24 07:55 03/22/24 07:55 03/22/24 07:55 03/22/24 07:55
Intake & Output
03/21/24 03/22/24 03/23/24
06:59 06:59 06:59
Intake Total 1160 / 1160 1860 / 1860
Output Total 675 / 675 200 / 200
Balance 485 / 485 1660 / 1660
Intake:
Oral fluids 1160 / 1160 1860 / 1860
Output:
Urine, Voided 675 / 675 200 / 200
Other:
Number of approximated MODERATE 2
amounts of urine
Lab Results
03/22/24 05:49
Physical Exam
-
General: No Acute Distress and AOx3
HEENT: Grossly Normal
Abdomen: Soft, Non Distended, Non Tender, No Guarding and No Rebound
[2024-03-22 10:48] LABS: Hematocrit 28.7 % (39.0-52.0); Hemoglobin 8.8 g/dL (13.0-18.0)
--- NOTE | 2024-03-22 12:00 | W.PN.CD ---
Today's Communication / Plan
-
assess to resume eliquis tomorrow if no more bleeding
Impression / Plan
-
Severe anemia, szwdq-[id number]:
-hgb 5.5, now improved s/p 3 units PRBC's; hemoglobin up to 8-9 range
-related to rectal bleeding in setting of radiation proctitis
-eliquis held
- Formalin application for radiation proctitis.in the operating room on 03/19/2024
-assess to resume eliquis tomorrow if no more bleeding
.
CAD with hx RCA stent, [employer] Lcx:
-no CP or SOB
-ASA stopped; resume Eliquis when okay from GI/colorectal standpoint
.
AFIB, paroxysmal: hx ablation
-stable in SR
-FER resolved: increase tikosyn back to home dose 500 mcg bid
-trend Cr
-continue metoprolol
-Eliquis held for severe anemia, rectal bleeding. [id number] score is 4 for age, CAD, CHF. Plan as above.
hx AVR, MVR:
-stable on most recent echo
-monitor over time
Pacemaker: Stable
HFpEF: Chronic. Stable continue to monitor volume status
-resume lasix on d/c (held for FER)
COPD:
-getting duonebs
-remains on 4L NC
-consider CXR if continues to need O2
Physical Exam
Vital Signs/Labs
Vital Signs
Temp Pulse Resp BP Pulse Ox
97.5 F 73 16 107/57 100
03/22/24 11:05 03/22/24 11:05 03/22/24 11:05 03/22/24 11:05 03/22/24 11:05
03/21/24 03/22/24 03/23/24
06:59 06:59 06:59
Actual Weight 75.551 kg 77.292 kg
03/22/24 05:49
APTT 41.5 Sec (23.4-35.0) H 03/17/24 16:30
Magnesium 2.4 mg/dl (1.6-2.3) H 03/21/24 23:12
Physical Exam
Constitutional: No acute distress
EENT: Moist mucous membranes
Cardiovascular: Rhythm & rate is regular, Pedal edema is absent, JVD pressure is normal and Systolic murmur present
Respiratory: Respiratory effort normal and Lungs clear to auscul.
Neuro/Psych: AO x 3
Data Reviewed
-
Date of Service: March 22, 2024
EKG: Other (Tele: A paced, brief Afib)
Labs: Labs Reviewed by me
--- NOTE | 2024-03-22 12:57 | W.PN.HOSP.TC ---
Today's Communication/Plan
-
Follow H&H
Diet per surgery
Assessment / Plan
Assessment / Plan
# Acute recurrent rectal bleeding secondary to radiation proctitis-hemodynamically stable
#Prostate cancer August 2022 [facility]/radiation
-Patient says he has been having recurrent rectal bleeding since August last year. Patient required transfusion support in the past 2.
-Admitting Hgb 5.5
-Transfused 2 units PRBC. H&H stable since transfusion.
-Status post formalin application 03/19
-2 small episodes of bleeding in stools yesterday but no hemodynamic instability. H&H stable. Continue to follow H&H. Colorectal surgery following.
-Patient stopped Eliquis on 03/15/2024
-Patient on combination of anticoagulant and aspirin-aspirin is on hold-cardiology do not see the need of dual agents of aspirin and Eliquis. Moving forward only Eliquis is recommended.
-Advance diet per surgery
#Acute hypotension secondary to hemorrhagic shock
#Acute on chronic blood loss anemia
#Essential HTN
#Left renal artery stenosis Hx
Improved hemodynamics status post transfusion support. Blood pressure remained stable.
-Hold Lasix 40 mg daily; continue metoprolol tartrate 50 mg every 8 hours with parameters
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
Creat 2.6/bun 68
Resolved. Creatinine 1.3. Suspicious for prerenal/hypotension related .ultrasound of the abdomen shows no evidence of stones or obstructive uropathy. Bladder scan shows no high residuals.
-Continue hold diuretic
-Normalized HCO3
Continue to follow BMP
#Acute hyperkalemia in setting of FER
K 6
-s/p Lokelma, IV insulin, IV dextrose
-Normalized
#K-oox-fuskalces
-Status post ablation March 2020
#Permanent pacemaker
-With FER and prolonged QTc Tikosyn was on hold but now reintroduced at lower dose. QTc improved. Improving FER. Uptitrate Tikosyn as per cardiology
-cw metoprolol tartrate 50 mg every 8 hours with parameters
-CBC cardiology following
-Hold Eliquis and aspirin(patient took this a.m. 03/17/2024) .Resume Eliquis when ok from surgical standpoint.
-No clinical evidence of heart failure. Weight has been stable at 164 lower than prior recordings.
# COPD per patient-no acute exacerbation
-Today with intermittent wheeze. Add nebulizers as needed.
-Continue albuterol every 6 as needed wheezing
-Continue Breo Ellipta/Incruse Ellipta
# Acute hypoxic respiratory insufficiency-patient is requiring oxygen though he is asymptomatic.
-Chest x-ray without evidence of pneumonia, heart failure, no evidence of acute cardiopulmonary disease.
-Resolved. Currently on room air
# Itching for few days without any hives-unclear if this is a delayed mild allergic reaction to transfusion products. Check ferritin. Bilirubin normal now. Try as needed antihistamines for now and follow.Added Hydroxyzine.
#AVR, MVR replacement replacement
#Pericardial effusion with pericardiocentesis 08/06/2019 status post AVR/MVR/maze 08/06/2019
#Hypothyroidism
-Continue levothyroxine 25 mcg p.o. daily
#Gastritis/duodenitis December 2004
GI bleed Hx due to perforated gastric ulcer December 2004
-Patient reports was treated with Protonix
#CAD cardiac stent December 2004
-Hold aspirin 81 mg daily due to current anemia/bleeding
Other PMH:
Hepatitis A Hx
Femur fracture September 30, 2022
DVT prophylaxis
SCDs
Full code
Anticipated Discharge: 24 - 48 hours
Subjective/Interval History
-
Date of Service: March 22, 2024
2 small bowel movements yesterday with blood. He says he did not see any blood with today's bowel movement. No nausea vomiting. No abdominal pain
Objective Data
-
Labs:
Laboratory Results
03/22/24 03/22/24
05:49 10:39
WBC 6.6
Hgb 8.5 L 8.8 L
Hct 27.9 L 28.7 L
Plt Count 146
Sodium 136
Potassium 4.3
Chloride 105
Carbon Dioxide 26
BUN 26 H
Creatinine 1.0
Glucose 83
Calcium 7.5 L
Vital Signs:
Vital Signs
Temp Pulse Resp BP Pulse Ox
97.5 F 73 16 107/57 100
03/22/24 11:05 03/22/24 11:05 03/22/24 11:05 03/22/24 11:05 03/22/24 11:05
I&O
03/21/24 03/22/24 03/23/24
06:59 06:59 06:59
Intake Total 1160 / 1160 1860 / 1860
Output Total 675 / 675 200 / 200
Balance 485 / 485 1660 / 1660
Review of Systems
-
Constitutional: Denies Fever
Respiratory: Denies Trouble Breathing
Cardiac: Denies Chest Pain or Palpitations
Neuro: Denies Dizzy
Physical Exam
-
General: Comfortable
HEENT: Moist Mucous Membranes
Respiratory: Clear to Auscultation and Non Labored Respirations; Negative Accessory Resp Muscle Use
Cardiac: Regular Rhythm (A paced) and S1/S2
GI: Soft and Nontender
Neuro: AO x 3
Data Reviewed
-
Labs: Labs Reviewed by me
--- NOTE | 2024-03-22 15:34 | CM ---
Reviewed the chart notes and spoke with the patient at the bedside. IMM reviewed. Discussed with the patient PT recommendation of SNF vs home health. Patient refused SNF and VN services. Patient said he is current with [facility] and plans to
continues with them. CM continues to be available to patient/family and is monitoring medical plan for needs at discharge.
Plan: Discharge to home when medically stable.
[2024-03-22] MEDS: LOPRESSOR PO (16:15)
[2024-03-22 17:07] LABS: Hematocrit 30.7 % (39.0-52.0); Hemoglobin 9.4 g/dL (13.0-18.0)
[2024-03-22] MEDS: TIKOSYN 500 MCG PO (19:40)
[2024-03-22] MEDS: BENADRYL 25 MG PO (22:42)
[2024-03-22 23:42] LABS: Hematocrit 30.7 % (39.0-52.0); Hemoglobin 9.6 g/dL (13.0-18.0)
--- NOTE | 2024-03-23 01:25 | PTCARENOTE ---
Pt 83 y/o M post Rectal Formalin Application on 03/19 has had 3 units of RBC. H & H ordered q6h (Hgb@06:00....8.5; @11:00....8.8; @17:00....9.4: @23:00...9.6), trending up. Pt states last 3 BM had no visible blood. Spoke with MARVEL Williamson, she said Patricia
was tied up and she would answer my question. After filling MARVEL Williamson in on this info and telling her pt was made NPO with no clears or oral meds, she reviewed the pt's chart & said I could give the pt his thyroid medicine in the morning with a sip
of water.
[2024-03-23 03:25] VITALS: BP 122/68
[2024-03-23] MEDS: SYNTHROID 25 MCG PO (05:04)
[2024-03-23 07:22] LABS: Blood Urea Nitrogen 17 mg/dl (9-20); Calcium 7.3 mg/dl (8.4-10.2); Carbon Dioxide 24 mmol/L (22-30); Chloride 106 mmol/L (98-107); Estimated Creatinine Clearance 73 ml/min; Glucose 84 mg/dl (70-99); Potassium 4.2 mmol/L (3.5-5.1); Sodium 137 mmol/L (135-145); eGFR > 60.00
[2024-03-23 07:45] VITALS: BP 121/61
[2024-03-23] MEDS: NON-FORMULARY ITEM 1 UNIT INH (08:31)
[2024-03-23] MEDS: NON-FORMULARY ITEM 1 MCG INH (08:31)
[2024-03-23] MEDS: LOPRESSOR 50 MG PO ×3 (08:37→22:20)
[2024-03-23] MEDS: TIKOSYN 500 MCG PO ×2 (08:37→20:55)
--- NOTE | 2024-03-23 08:40 | W.PN.CD ---
Addendum entered and electronically signed by Darnell Bullock MD 03/23/24 08:50:
-Okay to resume Eliquis, per Colorectal Surgery.
-Will place order to resume Eliquis 5 mg twice daily.
-Continue to monitor for any signs of bleeding; trend hemoglobin.
Original Note:
Today's Communication / Plan
-
-Awaiting colorectal clearance to resume Eliquis.
Impression / Plan
-
Severe anemia, ueycp-mx-jhjzjbi:
-hgb 5.5, now improved s/p 3 units PRBC's; hemoglobin up to 8-9 range--remains stable.
-related to rectal bleeding in setting of radiation proctitis
-Awaiting colorectal clearance to resume Eliquis.
- Formalin application for radiation proctitis.in the operating room on 03/19/2024
.
CAD with hx RCA stent, [employer] Lcx:
-Stable, asymptomatic.
-ASA stopped; resume Eliquis when okay from GI/colorectal standpoint.
.
Paroxysmal AFIB status-post ablation/PPM:
-Currently A-paced.
-FER resolved; now back on home dose of Tikosyn 500 500 mcg BID.
-Continue current dose of metoprolol tartrate.
-Eliquis held for severe anemia, rectal bleeding. [id number] score is 4 for age, CAD, CHF. Plan as above.
Bioprosthetic AVR/MVR:
-stable on most recent echo
-monitor over time.
HFpEF: Chronic. Stable continue to monitor volume status
-resume lasix on d/c (held for FER)
COPD:
-getting duonebs
-remains on 4L NC
-consider CXR if continues to need O2
Physical Exam
Vital Signs/Labs
Vital Signs
Temp Pulse Resp BP Pulse Ox
97.7 F 89 16 121/61 99
03/23/24 07:45 03/23/24 08:37 03/23/24 08:36 03/23/24 08:37 03/23/24 08:36
03/22/24 03/23/24 03/24/24
06:59 06:59 06:59
Actual Weight 77.292 kg
03/22/24 23:24
03/23/24 05:14
APTT 41.5 Sec (23.4-35.0) H 03/17/24 16:30
Magnesium 2.4 mg/dl (1.6-2.3) H 03/21/24 23:12
Physical Exam
Constitutional: No acute distress and Comfortable
EENT: Anicteric
Cardiovascular: Rhythm & rate is regular, Pedal edema present (trace at ankles), Systolic murmur present (/) and S1S2 is normal
Respiratory: Respiratory effort normal and Rhonchi Present (Mild bibasilar)
GI: Soft
Neuro/Psych: AO x 3
Other: Skin (Warm, dry, intact)
Data Reviewed
-
Date of Service: March 23, 2024
EKG: Report Reviewed by me (Telemetry: A paced)
[2024-03-23] MEDS: ELIQUIS 5 MG PO ×2 (08:58→20:55)
[2024-03-23 11:20] VITALS: BP 114/51
--- NOTE | 2024-03-23 11:57 | W.PN.CRS1 ---
Today's Communication / Plan
-
Resume diet.
Ok with resuming Eliquis.
Assessment/Plan
-
Rectal bleeding due to radiation proctitis.
Last Hg reasonable at 9.6. Hg has been stable for past few days. No bleeding recently. I am ok with resumption of Eliquis and resuming diet (ordered diet). I made patient aware that small volume spotting here and that is not unexpected.
Significant rebleeding would be a concern and sometimes repeat topical formalin treatment considered in that circumstance.
Subjective Data
Procedure
Rectal formalin application 03/19/24
Subjective Data
Date of Service: March 23, 2024
Seen earlier in am.
Denies bleeding overnight.
Objective Data
-
Vital Signs
Temp Pulse Resp BP Pulse Ox
97.6 F 67 16 114/51 95
03/23/24 11:20 03/23/24 11:20 03/23/24 11:20 03/23/24 11:20 03/23/24 11:20
Intake & Output
03/22/24 03/23/24 03/24/24
06:59 06:59 06:59
Intake Total 1860 / 1860 3300 / 3300
Output Total 200 / 200 930 / 930
Balance 1660 / 1660 2370 / 2370
Intake:
Oral fluids 1860 / 1860 3300 / 3300
Output:
Urine, Voided 200 / 200 930 / 930
Other:
Number of approximated MODERATE 2 4
amounts of urine
Lab Results
03/22/24 23:24
03/23/24 05:14
Physical Exam
-
General: No Acute Distress
Chest: Clear
Cardiovascular: Regular Rate & Rhythm
Abdomen: Non Distended and Non Tender
--- NOTE | 2024-03-23 13:11 | W.PN.HOSP.TC ---
Today's Communication/Plan
-
DC
Assessment / Plan
Assessment / Plan
# Acute recurrent rectal bleeding secondary to radiation proctitis-hemodynamically stable
#Prostate cancer August 2022 [facility]/radiation
-Patient says he has been having recurrent rectal bleeding since August last year. Patient required transfusion support in the past 2.
-Admitting Hgb 5.5
-Transfused 2 units PRBC. H&H stable since transfusion.
-Status post formalin application 03/19
- H&H stable. No further active bleeding.
-Patient stopped Eliquis on 03/15/2024
-Patient on combination of anticoagulant and aspirin-aspirin is on hold-cardiology do not see the need of dual agents of aspirin and Eliquis. Moving forward only Eliquis is recommended.
-Advance diet per surgery
#Acute hypotension secondary to hemorrhagic shock
#Acute on chronic blood loss anemia
#Essential HTN
#Left renal artery stenosis Hx
Improved hemodynamics status post transfusion support. Blood pressure remained stable.
-Hold Lasix 40 mg daily; continue metoprolol tartrate 50 mg every 8 hours with parameters
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
Creat 2.6/bun 68
Resolved. Creatinine 0.8. Suspicious for prerenal/hypotension related .ultrasound of the abdomen shows no evidence of stones or obstructive uropathy. Bladder scan shows no high residuals.
-Continue hold diuretic
-Normalized HCO3
Continue to follow BMP
#Acute hyperkalemia in setting of FER
K 6
-s/p Lokelma, IV insulin, IV dextrose
-Normalized
#F-wjt-qtcnhkvhs
-Status post ablation March 2020
#Permanent pacemaker
-With FER and prolonged QTc Tikosyn was on hold but now reintroduced at lower dose. QTc improved. Improving FER. Uptitrate Tikosyn as per cardiology
-cw metoprolol tartrate 50 mg every 8 hours with parameters
-CBC cardiology following
-Hold Eliquis and aspirin(patient took this a.m. 03/17/2024) .Resuming Eliquis today
-No clinical evidence of heart failure. Weight has been stable at 164 lower than prior recordings.
# COPD per patient-no acute exacerbation
-Today with intermittent wheeze. Add nebulizers as needed.
-Continue albuterol every 6 as needed wheezing
-Continue Breo Ellipta/Incruse Ellipta
# Acute hypoxic respiratory insufficiency-patient is requiring oxygen though he is asymptomatic.
-Chest x-ray without evidence of pneumonia, heart failure, no evidence of acute cardiopulmonary disease.
-Resolved. Currently on room air
# Itching for few days without any hives-unclear if this is a delayed mild allergic reaction to transfusion products. Check ferritin. Bilirubin normal now. Try as needed antihistamines for now and follow.Added Hydroxyzine.
#AVR, MVR replacement replacement
#Pericardial effusion with pericardiocentesis 08/06/2019 status post AVR/MVR/maze 08/06/2019
#Hypothyroidism
-Continue levothyroxine 25 mcg p.o. daily
#Gastritis/duodenitis December 2004
GI bleed Hx due to perforated gastric ulcer December 2004
-Patient reports was treated with Protonix
#CAD cardiac stent December 2004
-Hold aspirin 81 mg daily due to current anemia/bleeding
Other PMH:
Hepatitis A Hx
Femur fracture September 30, 2022
DVT prophylaxis
SCDs
Full code
DC home with therapy once ok from surgical standpoint
Anticipated Discharge: Today
Subjective/Interval History
-
Date of Service: March 23, 2024
No rectal bleeding on going.
Cleared for diet and AC by surgery.
Objective Data
-
Labs:
Laboratory Results
03/23/24
05:14
Sodium 137
Potassium 4.2
Chloride 106
Carbon Dioxide 24
BUN 17
Creatinine 0.8
Glucose 84
Calcium 7.3 L
Vital Signs:
Vital Signs
Temp Pulse Resp BP Pulse Ox
97.6 F 67 16 114/51 95
03/23/24 11:20 03/23/24 11:20 03/23/24 11:20 03/23/24 11:20 03/23/24 11:20
I&O
03/22/24 03/23/24 03/24/24
06:59 06:59 06:59
Intake Total 1860 / 1860 3300 / 3300
Output Total 200 / 200 930 / 930
Balance 1660 / 1660 2370 / 2370
Review of Systems
-
Constitutional: Denies Fever
Respiratory: Denies Trouble Breathing
Cardiac: Denies Chest Pain
Abdomen/GI: Denies Abdominal Pain, Nausea or Vomiting
Neuro: Denies Dizzy
Physical Exam
-
General: Comfortable
Respiratory: Non Labored Respirations; Negative Accessory Resp Muscle Use
Cardiac: Regular Rhythm (a paced) and S1/S2; Negative Tachycardic
GI: Soft and Nontender
Neuro: AO x 3
Data Reviewed
-
Labs: Labs Reviewed by me
--- NOTE | 2024-03-23 13:57 | CM ---
Reviewed the chart notes. Message received from [facility], they have received referral sent via [facility] and will follow the patient at discharge.
Plan: Discharge to home with resumption of [facility].
[facility]: [phone]
[2024-03-23 15:24] VITALS: BP 130/58
--- NOTE | 2024-03-23 16:54 | PN.CDI ---
CDI
- -
CDI:
Physician Documentation Request
Admit Date: 03/17/24 19:50
Dear Doctor Kenton,
Please review the following and provide your response in the progress notes.
Clinical Indicators:
Pt admitted with rectal bleeding 2/2 Radiation Proctitis /Acute on chronic anemia /Hemorrhagic shock
There is potentially conflicting in the record regarding the type of afib.
Cardiology consult, ' persistent AFIB/flutter s/p ablation on Eliquis and Tikosyn..'
Progress note 03/18 & 03/19, '#H-bqs-quatnpjdeSqwwvd post ablation March 2020 Permanent pacemaker..-Hold Eliquis and aspirin(patient took this a.m. 03/17/2024)....'
Cardiology progress notes 03/21-03/23, ' AFIB, paroxysmal: hx ablation...-stable in SR...-Tikosyn ....-Eliquis....'
If possible, please provide further specificity regarding atrial fibrillation, such as:
Paroxysmal atrial fibrillation - terminates spontaneously or with intervention within 7 days of onset
Permanent atrial fibrillation - when a decision has been made to accept the presence of AF and there is no further attempt to restore or maintain sinus rhythm
Other - please specify
Use of terms such as suspected, likely, concern for, or probable (associated with a specific diagnosis that is being evaluated, monitored, or treated as if it exists) are acceptable and can be coded in the inpatient setting, when documented at the
time of discharge.
Thank you,
Erika Simmons RN
CDI Specialist
[place] [facility]
Please use your independent medical judgment in providing your response.
[2024-03-23 19:52] VITALS: BP 126/57
[2024-03-23] MEDS: BENADRYL 25 MG PO (22:18)
[2024-03-23 22:36] LABS: Hematocrit 27.6 % (39.0-52.0); Hemoglobin 8.6 g/dL (13.0-18.0)
[2024-03-23 22:40] VITALS: BP 110/54
--- NOTE | 2024-03-23 23:15 | PTCARENOTE ---
Pt aaox3, cooperative. Pt had two incontinent episodes of blood from his rectum. Pt denies pain, sob or dizziness. vss. House [employer] made aware, stat Hgb 8.6. made aware through TT, advised to monitor for now. Pt updated.
--- NOTE | 2024-03-24 02:18 | DOWNTIME ---
There was a GL 2ours Client [employer] Downtime on 03/24/2024 from 0100 to 03/24/2023 at 0205 . Downtime documentation of patient's care, including medication administrations, has been reconciled in the electronic record per guidelines. Refer to the
patient's paper chart under the miscellaneous tab to see printed paper medication records and downtime forms.
[2024-03-24 03:28] VITALS: BP 122/61
[2024-03-24] MEDS: SYNTHROID 25 MCG PO (05:46)
[2024-03-24 05:48] VITALS: BMI 23.6
[2024-03-24 07:36] VITALS: BP 133/69
[2024-03-24 08:20] LABS: Hemoglobin 9.1 g/dL (13.0-18.0)
--- NOTE | 2024-03-24 08:23 | W.PN.CRS1 ---
Today's Communication / Plan
-
As below
Assessment/Plan
-
83-year-old male with PMH of A-fib (on Eliquis, last dose was 2 days ago), asthma, HTN, left renal artery stenosis, hypothyroidism, GERD, CAD (s/p stent), prostate cancer s/p RT who has been having ongoing rectal bleeding requiring outpatient
transfusions. He was scheduled for an elective formalin application by Dr. Trinidad today for radiation proctitis. He states that 2 to 3 days ago, he had more rectal bleeding associated with passing of clots. He stopped his Eliquis. However, he
was having dyspnea on exertion as well as dizziness. He was instructed to go to the ED. His hemoglobin was 5.5. He was admitted and received pRBCs x 3. He responded appropriately and has not had any blood per rectum since 2 days ago when he
stopped the Eliquis. He also states that he has been urinating less than normal.
POD 5 formalin application
AFVSS
Hb pending
�Radiation proctitis leading to symptomatic anemia; s/p formalin application
�Still with some minor bleeding; overall improved and Hb stable
�Continue Eliquis
� FER, now resolved
� Okay for regular diet
�Continue home meds
� Care per hospitalist
Dispo - if Hb stable, ok for d/c from colorectal standpoint; follow-up with Vivi in 2-4 weeks; instructed to call the office or return to ED if bleeding worsens
Subjective Data
Procedure
Rectal formalin application 03/19/24
Subjective Data
Date of Service: March 24, 2024
Yesterday evening, he had a BM without blood. Overnight, he had some spotting of blood after a sneeze, but states it was not much.
Otherwise doing well without abdominal pain or N/B.
Objective Data
-
Vital Signs
Temp Pulse Resp BP Pulse Ox
97.5 F 85 18 133/69 96
03/24/24 07:36 03/24/24 07:36 03/24/24 07:36 03/24/24 07:36 03/24/24 07:36
Intake & Output
03/23/24 03/24/24 03/25/24
06:59 06:59 06:59
Intake Total 3300 / 3300 1140 / 1140
Output Total 930 / 930 650 / 650
Balance 2370 / 2370 490 / 490
Intake:
Oral fluids 3300 / 3300 1140 / 1140
Output:
Urine, Voided 930 / 930 650 / 650
Other:
Number of approximated MODERATE 4 1
amounts of urine
Lab Results
03/24/24 07:19
03/23/24 05:14
Physical Exam
-
General: No Acute Distress and AOx3
HEENT: Grossly Normal
Abdomen: Soft, Non Distended, Non Tender, No Guarding and No Rebound
Skin: Warm and Dry
[2024-03-24] MEDS: NON-FORMULARY ITEM 1 UNIT INH (08:39)
[2024-03-24] MEDS: LOPRESSOR 50 MG PO (08:40)
[2024-03-24] MEDS: NON-FORMULARY ITEM 1 MCG INH (08:40)
[2024-03-24] MEDS: ELIQUIS 5 MG PO (08:40)
[2024-03-24] MEDS: TIKOSYN 500 MCG PO (08:40)
[2024-03-24 11:19] VITALS: BP 111/59
--- NOTE | 2024-03-24 13:12 | W.PN.HOSP.TC ---
Addendum entered and electronically signed by Juanjose Fung MD 03/27/24 16:46:
Afib is paroxysmal
Original Note:
Today's Communication/Plan
-
DC
Assessment / Plan
Assessment / Plan
# Acute recurrent rectal bleeding secondary to radiation proctitis-hemodynamically stable
#Prostate cancer August 2022 [facility]/radiation
-Patient says he has been having recurrent rectal bleeding since August last year. Patient required transfusion support in the past 2.
-Admitting Hgb 5.5
-Transfused 2 units PRBC. H&H stable since transfusion.
-Status post formalin application 03/19
- H&H stable. No further active bleeding.
- Patient on combination of anticoagulant and aspirin-aspirin is on hold-cardiology do not see the need of dual agents of aspirin and Eliquis. Moving forward only Eliquis is recommended.
-Advance diet per surgery
#Acute hypotension secondary to hemorrhagic shock
#Acute on chronic blood loss anemia
#Essential HTN
#Left renal artery stenosis Hx
Improved hemodynamics status post transfusion support. Blood pressure remained stable.
-Resume Lasix 40 mg daily on dc; continue metoprolol tartrate 50 mg every 8 hours with parameters
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
Creat 2.6/bun 68
Resolved. Creatinine 0.8. Suspicious for prerenal/hypotension related .ultrasound of the abdomen shows no evidence of stones or obstructive uropathy. Bladder scan shows no high residuals.
-Continue hold diuretic
-Normalized HCO3
Continue to follow BMP
#Acute hyperkalemia in setting of FER
K 6
-s/p Lokelma, IV insulin, IV dextrose
-Normalized
#[id number]
-Status post ablation March 2020
#Permanent pacemaker
-With FER and prolonged QTc Tikosyn was on hold but now reintroduced at lower dose. QTc improved. Improving FER. Uptitrated Tikosyn by cardiology to home dose
-cw metoprolol tartrate 50 mg every 8 hours with parameters
-CBC cardiology following
Resumed Eliquis today
-No clinical evidence of heart failure. Weight has been stable at 164 lower than prior recordings.
# COPD per patient-no acute exacerbation
-Today with intermittent wheeze. Add nebulizers as needed.
-Continue albuterol every 6 as needed wheezing
-Continue Breo Ellipta/Incruse Ellipta
# Acute hypoxic respiratory insufficiency-patient is requiring oxygen though he is asymptomatic.
-Chest x-ray without evidence of pneumonia, heart failure, no evidence of acute cardiopulmonary disease.
-Resolved. Currently on room air
# Itching for few days without any hives-unclear if this is a delayed mild allergic reaction to transfusion products. Ferritin is normal. Bilirubin normal now. Resolved.
#AVR, MVR replacement replacement
#Pericardial effusion with pericardiocentesis 08/06/2019 status post AVR/MVR/maze 08/06/2019
#Hypothyroidism
-Continue levothyroxine 25 mcg p.o. daily
#Gastritis/duodenitis December 2004
GI bleed Hx due to perforated gastric ulcer December 2004
-Patient reports was treated with Protonix
#CAD cardiac stent December 2004
-Hold aspirin 81 mg daily due to current anemia/bleeding
Other PMH:
Hepatitis A Hx
Femur fracture September 30, 2022
DVT prophylaxis
SCDs
Full code
Discussed with colorectal surgery today-stable from the standpoint for discharge once H&H is stable. Follow-up with Dr. Trinidad as an outpatient.
DC home with home care
Total of discharge 32 minutes
Anticipated Discharge: Today
Subjective/Interval History
-
Date of Service: March 24, 2024
Tolerating diet. Denies any blood in the stool today.
No fever chills.
Objective Data
-
Labs:
Laboratory Results
03/24/24
07:19
Hgb 9.1 L
Vital Signs:
Vital Signs
Temp Pulse Resp BP Pulse Ox
97.3 F 67 18 111/59 96
03/24/24 11:19 03/24/24 11:19 03/24/24 11:19 03/24/24 11:19 03/24/24 11:19
I&O
03/23/24 03/24/24 03/25/24
06:59 06:59 06:59
Intake Total 3300 / 3300 1140 / 1140
Output Total 930 / 930 650 / 650
Balance 2370 / 2370 490 / 490
Review of Systems
-
Respiratory: Denies Trouble Breathing
Cardiac: Denies Chest Pain or Palpitations
Neuro: Denies Dizzy
Physical Exam
-
General: Comfortable
Respiratory: Clear to Auscultation and Non Labored Respirations; Negative Accessory Resp Muscle Use
Cardiac: Regular Rhythm (a paced) and S1/S2; Negative Tachycardic
GI: Soft, Nontender, Nondistended and Normal Bowel Sounds
Neuro: AO x 3
Psych: Calm; Negative Confused
Data Reviewed
-
Labs: Labs Reviewed by me
--- NOTE | 2024-03-24 13:48 | W.PN.CD ---
Today's Communication / Plan
-
eliquis has been resumed at 5mg bid without ASA
please call us back with additional questions
Impression / Plan
-
Severe anemia, [id number]:
-hgb 5.5, now improved s/p 3 units PRBC's; hemoglobin up to 8-9 range--remains stable.
-related to rectal bleeding in setting of radiation proctitis
- s/p Formalin application for radiation proctitis.in the operating room on 03/19/2024
- eliquis has been resumed at 5mg bid without ASA
CAD with hx RCA stent, [employer] Lcx:
-Stable, asymptomatic.
-ASA stopped since on eliquis
Paroxysmal AFIB status-post ablation/PPM:
-Currently A-paced.
-FER resolved; now back on home dose of Tikosyn 500 mcg q12hr.
-Continue current dose of metoprolol tartrate.
-[id number] score is 4 for age, CAD, CHF. eliquis as above.
Bioprosthetic AVR/MVR:
-stable on most recent echo
-monitor over time.
HFpEF: Chronic. Stable continue to monitor volume status
-resume lasix on d/c (held for FER)
Physical Exam
Vital Signs/Labs
Vital Signs
Temp Pulse Resp BP Pulse Ox
97.3 F 67 18 111/59 96
03/24/24 11:19 03/24/24 11:19 03/24/24 11:19 03/24/24 11:19 03/24/24 11:19
03/23/24 03/24/24 03/25/24
06:59 06:59 06:59
Actual Weight 76.612 kg
03/24/24 07:19
03/23/24 05:14
APTT 41.5 Sec (23.4-35.0) H 03/17/24 16:30
Magnesium 2.4 mg/dl (1.6-2.3) H 03/21/24 23:12
Physical Exam
Constitutional: No acute distress and Comfortable
EENT: Moist mucous membranes
Cardiovascular: Rhythm & rate is regular, Pedal edema is absent, JVD pressure is normal and Systolic murmur present
Respiratory: Respiratory effort normal and Lungs clear to auscul.
Neuro/Psych: AO x 3
Data Reviewed
-
Date of Service: March 24, 2024
EKG: Other (Ap,Vs)
Labs: Labs Reviewed by me
[2024-03-24 14:34] VITALS: BP 118/64
== END 2024-03-24 15:10 | disposition home health service (06) | DRG 347 ==
LOC: 2 SOUTH 19:50
PROVIDERS: Clinical Nurse Specialist Family Health; Nurse Practitioner Family; Nurse Practitioner Gerontology; Surgery; ADMITTING PHYSICIAN Internal Medicine; ATTENDING PHYSICIAN Internal Medicine; EMERGENCY PHYSICIAN Emergency Medicine; FAMILY PHYSICIAN Family Medicine; OTHER PHYSICIAN Internal Medicine; OTHER PHYSICIAN Surgery
PROC: 30233N1 Transfusion of Nonautologous Red Blood Cells into Peripheral Vein, Percutaneous Approach (ICD-10-PCS; 2024-03-17)
PROC: 0W3P7ZZ Control Bleeding in Gastrointestinal Tract, Via Natural or Artificial Opening (ICD-10-PCS; 2024-03-19)
PROC: 0DJD8ZZ Inspection of Lower Intestinal Tract, Via Natural or Artificial Opening Endoscopic (ICD-10-PCS; 2024-03-19)
DX: K62.7 Radiation proctitis (principal); R57.8 Other shock; D62 Acute posthemorrhagic anemia; I50.32 Chronic diastolic (congestive) heart failure; N17.9 Acute kidney failure, unspecified; I13.0 Hypertensive heart and chronic kidney disease with heart failure and stage 1 through stage 4 chronic kidney disease, or unspecified chronic kidney disease; K62.5 Hemorrhage of anus and rectum; E03.9 Hypothyroidism, unspecified; I95.89 Other hypotension; I48.0 Paroxysmal atrial fibrillation; E78.5 Hyperlipidemia, unspecified; J44.89 Other specified chronic obstructive pulmonary disease; E11.22 Type 2 diabetes mellitus with diabetic chronic kidney disease; I25.10 Atherosclerotic heart disease of native coronary artery without angina pectoris; E87.5 Hyperkalemia; N18.32 Chronic kidney disease, stage 3b; Z95.5 Presence of coronary angioplasty implant and graft; Z95.2 Presence of prosthetic heart valve; Z95.0 Presence of cardiac pacemaker; Z87.891 Personal history of nicotine dependence; Z79.82 Long term (current) use of aspirin; Z79.83 Long term (current) use of bisphosphonates; Z79.890 Hormone replacement therapy; Z79.899 Other long term (current) drug therapy; Z79.51 Long term (current) use of inhaled steroids; Z99.81 Dependence on supplemental oxygen; Z87.11 Personal history of peptic ulcer disease; Z85.46 Personal history of malignant neoplasm of prostate; Z80.42 Family history of malignant neoplasm of prostate; Y84.2 Radiological procedure and radiotherapy as the cause of abnormal reaction of the patient, or of later complication, without mention of misadventure at the time of the procedure
CPT/HCPCS: 36430; 76770; 80048; 80053; 82728; 82962; 83540; 83550; 83735; 84132; 85014; 85018; 85025; 85027; 85730; 86850; 86900; 86901; 86920; 93005; 94640; 96374; 97116; 97163; 97166; 99291; P9016

== ENCOUNTER → 2024-03-29 10:05 | Outpatient (REF) | payer MEDICARE, BC, SELFPAY ==
[2024-03-29 11:57] LABS: PSA, Total - Diagnostic < 0.06 ng/ml (0.0-4.0)
[2024-03-29 12:00] LABS: Testosterone, Total < 4.9 ng/dl (72-623)
== END ==
LOC: REG 10:05
PROVIDERS: ATTENDING PHYSICIAN Radiology Radiation Oncology; FAMILY PHYSICIAN Family Medicine; OTHER PHYSICIAN Internal Medicine; REFERRING PHYSICIAN Surgery
DX: C61 Malignant neoplasm of prostate (principal); R97.20 Elevated prostate specific antigen [PSA]
CPT/HCPCS: 36415; 84153; 84403

== ENCOUNTER 2024-04-15 12:59 | Outpatient (RCR) | payer MEDICARE, BC, SELFPAY ==
[2024-04-08] MEDS: INJECTAFER 265 MG IV (13:22)
[2024-04-08 13:29] VITALS: BP 115/54
[2024-04-08 14:20] VITALS: BP 114/54
[2024-04-15 13:10] VITALS: BP 130/53
[2024-04-15] MEDS: INJECTAFER 265 MG IV (13:23)
[2024-04-15 14:03] VITALS: BP 122/52
== END 2024-04-30 23:59 | disposition home or self-care (01) ==
LOC: OID 12:59
PROVIDERS: ATTENDING PHYSICIAN Family Medicine
DX: D50.0 Iron deficiency anemia secondary to blood loss (chronic) (principal); C61 Malignant neoplasm of prostate; K62.5 Hemorrhage of anus and rectum; Z87.891 Personal history of nicotine dependence; K62.7 Radiation proctitis; I48.19 Other persistent atrial fibrillation; Z79.01 Long term (current) use of anticoagulants
CPT/HCPCS: 96365; J1439

== ENCOUNTER → 2024-04-19 10:05 | Outpatient (REF) | payer MEDICARE, BC, SELFPAY ==
[2024-04-19 11:51] LABS: % Basophils 0.9 % (0-2); % Eosinophils 2.3 % (0-6); % Immature Granulocytes 0.6 % (0-0.5); % Lymphocytes 4.2 % (20.5-51.1); % Monocytes 15.9 % (1.7-9.3); % Neutrophils 76.1 % (42.2-75.2); Absolute Basophils 0.1 10^3/uL (0-0.2); Absolute Eosinophils 0.2 10^3/uL (0-0.7); Absolute Lymphocytes 0.3 10^3/uL (1.2-3.4); Absolute Monocytes 1.1 10^3/uL (0.1-0.6); Absolute Neutrophils 5.1 10^3/uL (1.4-6.5); Hematocrit 34.6 % (39.0-52.0); Hemoglobin 10.6 g/dL (13.0-18.0); Mean Corp Hgb Conc. 30.6 g/dL (33.0-37.0); Mean Corpuscular Hgb 28.3 pg (27.0-31.0); Mean Corpuscular Volume 92.3 fL (80.0-94.0); Mean Platelet Volume 9.6 fL (7.4-10.4); Nucleated Red Blood Cells % 0 % (-); Platelet Count 141 10^3/uL (130-400); Red Blood Cell Count 3.75 10^6/uL (4.70-6.10); Red Cell Dist. Width 21.3 % (11.5-14.5); White Blood Cell Count 6.7 10^3/uL (4.8-10.8)
== END ==
LOC: REG 10:05
PROVIDERS: ATTENDING PHYSICIAN Surgery; FAMILY PHYSICIAN Family Medicine
DX: K62.5 Hemorrhage of anus and rectum (principal)
CPT/HCPCS: 36415; 85025

== ENCOUNTER → 2024-05-07 15:04 | Outpatient (REF) | payer MEDICARE, BC, SELFPAY ==
[2024-05-07 15:46] LABS: % Basophils 1.3 % (0-2); % Eosinophils 7.1 % (0-6); % Immature Granulocytes 0.1 % (0-0.5); % Monocytes 13.4 % (1.7-9.3); % Neutrophils 74.1 % (42.2-75.2); Absolute Basophils 0.1 10^3/uL (0-0.2); Absolute Eosinophils 0.6 10^3/uL (0-0.7); Absolute Lymphocytes 0.3 10^3/uL (1.2-3.4); Absolute Monocytes 1.1 10^3/uL (0.1-0.6); Absolute Neutrophils 5.9 10^3/uL (1.4-6.5); Hemoglobin 12.2 g/dL (13.0-18.0); Mean Corp Hgb Conc. 31.3 g/dL (33.0-37.0); Mean Corpuscular Hgb 29.7 pg (27.0-31.0); Mean Corpuscular Volume 94.9 fL (80.0-94.0); Mean Platelet Volume 9.5 fL (7.4-10.4); Nucleated Red Blood Cells % 0 % (-); Platelet Count 206 10^3/uL (130-400); Red Blood Cell Count 4.11 10^6/uL (4.70-6.10)
[2024-05-07 16:03] LABS: Anisocytosis 1+; Normal RBC Morphology No
[2024-05-07 16:04] LABS: Microcytosis 1+
[2024-05-07 16:05] LABS: Ovalocytes Slight; Poikilocytosis Slight
[2024-05-07 16:07] LABS: Macrocytosis 1+
== END ==
LOC: REG 15:04
PROVIDERS: ATTENDING PHYSICIAN Surgery; FAMILY PHYSICIAN Family Medicine; OTHER PHYSICIAN Internal Medicine
DX: K62.5 Hemorrhage of anus and rectum (principal)
CPT/HCPCS: 36415; 85025

== ENCOUNTER → 2024-05-12 06:26 | Outpatient (REF) | payer MEDICARE, BC, SELFPAY ==
[2024-05-12] MEDS: FLUSH (NSS) 1 FLUSH IV (09:16)
[2024-05-12] MEDS: LEXISCAN 0.4 MG IV (09:16)
== END ==
LOC: RCS 06:26
PROVIDERS: ATTENDING PHYSICIAN Internal Medicine; FAMILY PHYSICIAN Family Medicine
DX: R06.09 Other forms of dyspnea (principal); I25.10 Atherosclerotic heart disease of native coronary artery without angina pectoris
CPT/HCPCS: 78452; 93017; A9500; J2785

== ENCOUNTER → 2024-05-24 10:06 | Outpatient (REF) | payer MEDICARE, BC, SELFPAY | LOC: RCS 10:06 | PROVIDERS: ATTENDING PHYSICIAN Internal Medicine; FAMILY PHYSICIAN Family Medicine | DX: I25.10 Atherosclerotic heart disease of native coronary artery without angina pectoris (principal); I36.1 Nonrheumatic tricuspid (valve) insufficiency; Z95.2 Presence of prosthetic heart valve | CPT/HCPCS: 93306 ==

== ENCOUNTER 2024-08-04 06:39 | Day surgery (SDC) | payer MEDICARE, BC, SELFPAY ==
[2024-08-04 11:13] VITALS: BMI 21.7
[2024-08-04 11:19] VITALS: BP 143/68
[2024-08-04] MEDS: NORMOSOL-R/PLASMALYTE-A 1000 IV (11:31)
[2024-08-04] MEDS: DUONEB 3 ML INH (12:04)
[2024-08-04 13:06] VITALS: BP 124/52
[2024-08-04 13:15] VITALS: BP 135/70
[2024-08-04 13:30] VITALS: BP 150/56
[2024-08-04 13:46] VITALS: BP 131/44
== END 2024-08-04 14:10 | disposition home or self-care (01) ==
LOC: SDS 06:39
PROVIDERS: ATTENDING PHYSICIAN Surgery
DX: K62.7 Radiation proctitis (principal); Y84.2 Radiological procedure and radiotherapy as the cause of abnormal reaction of the patient, or of later complication, without mention of misadventure at the time of the procedure
CPT/HCPCS: 46614; 94640

== ENCOUNTER → 2024-09-14 08:01 | Outpatient (REF) | payer MEDICARE, BC, SELFPAY ==
[2024-09-14 10:03] LABS: PSA, Total - Diagnostic < 0.06 ng/ml (0.0-4.0)
== END ==
LOC: REG 08:01
PROVIDERS: ATTENDING PHYSICIAN Radiology Radiation Oncology; FAMILY PHYSICIAN Family Medicine; REFERRING PHYSICIAN Advanced Practice Midwife
DX: C61 Malignant neoplasm of prostate (principal)
CPT/HCPCS: 36415; 84153; 84403

== ENCOUNTER → 2024-11-20 11:10 | Outpatient (REF) | payer MEDICARE, BC, SELFPAY | LOC: RAD 11:10 | PROVIDERS: ATTENDING PHYSICIAN Nurse Practitioner Adult Health; FAMILY PHYSICIAN Family Medicine | DX: J41.0 Simple chronic bronchitis (principal) | CPT/HCPCS: 71250 ==